=== PATIENT | male | born 1935 | race Caucasian/White ===

== ENCOUNTER 2018-03-10 07:54 | Emergency (ER) | payer MEDICARE, BC ==
[2018-03-10] MEDS ORDERED: Aspirin 81 MG Tab.Chew PO ONE (08:29)
[2018-03-10] MEDS ORDERED: Nitroglycerin 0.4 MG Tab.SL SL PRN (08:29)
[2018-03-10] MEDS ORDERED: Sodium Chloride 0.9% 10 ML Syringe FLUSH PRN (08:29)
[2018-03-10] MEDS ORDERED: Morphine 2 MG/ML Syringe IVPUSH PRN (08:29)
--- NOTE | 2018-03-10 08:41 | EDM.PDOC ---
ED HPI GENERAL MEDICAL PROBLEM - General Chief Complaint: Chest Pain Stated Complaint: PAIN IN CHEST AND SHOULDERS Time Seen by Provider: 03/10/18 08:28 Source of Information: Reports: Patient, Family, Old Records, RN Notes Reviewed History Limitations: Reports: No Limitations - History of Present Illness INITIAL COMMENTS - FREE TEXT/NARRATIVE: 83-year-old gentleman presents to the emergency department day complaint of chest pressure, states the pressure started yesterday morning lasted about 4 hours then resolved rated it 5 out of 10, he had another event of chest pressure this morning presented to the emergency department for further evaluation initially was 2 out of 10 on presentation however is chest pain-free at this time. Denies any shortness of breath diaphoresis nausea or vomiting. Describes the pressure across the center of his chest with radiation down both arms. 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 Chest Pain Score (Numeric/FACES): 2 - Related Data Allergies Allergy/AdvReac Type Severity Reaction Status Date / Time Penicillins Allergy Hives Verified 03/10/18 08:16 Home Meds: Home Meds Insulin Glarg,Human.Rec.Analog [LantUS] 20 unit SUBCUT DAILY 11/10/13 [History] Levothyroxine [Sythroid] 137 mcg PO DAILY 11/10/13 [History] Lisinopril 40 mg PO DAILY 11/10/13 [History] Pravastatin [Pravachol] 40 mg PO DAILY 11/10/13 [History] Doxazosin Mesylate [Cardura XL] 8 mg PO DAILY 05/09/14 [History] Acetaminophen [Tylenol] 650 mg PO Q6H PRN 03/10/18 [History] Calcium Carbonate/Vitamin D3 [Calcium 600-Vit D3 800 Tab] 1 each PO DAILY [History] Gluc/Tremayne-Msm#1/Vit C/Darian/Bor [Ruxoftj-Gecnf-UDG Complex Cplt] 1 each PO DAILY 03/10/18 [History] Methylsulfonylmethane [MSM] 2,000 mg PO DAILY 03/10/18 [History] Multivitamin [Multi-Vitamin Daily] 1 each PO DAILY 03/10/18 [History] [place]-3 Fatty Acids [[place]-3] 1,000 mg PO DAILY 03/10/18 [History] Potassium Chloride [Klor-Con 10] 10 meq PO DAILY 03/10/18 [History] Past Medical History HEENT History: Reports: Cataract, Hard of Hearing, Impaired Vision Cardiovascular History: Reports: High Cholesterol, Hypertension Musculoskeletal History: Reports: Osteoarthritis Endocrine/Metabolic History: Reports: Diabetes, Type II, IDDM - Infectious Disease History Infectious Disease History: Reports: Measles - Past Surgical History HEENT Surgical History: Reports: Cataract Surgery GI Surgical History: Reports: Appendectomy, Colonoscopy, Hernia, Inguinal Musculoskeletal Surgical History: Reports: Hip Replacement, Other (See Below) Social & Family History - Tobacco Use Smoking Status *Q: Never Smoker Second Hand Smoke Exposure: No - Caffeine Use Caffeine Use: Reports: Coffee - Alcohol Use Days Per Week of Alcohol Use: 0 - Recreational Drug Use Recreational Drug Use: No ED ROS GENERAL - Review of Systems Review Of Systems: See Below Constitutional: Reports: No Symptoms HEENT: Reports: No Symptoms Respiratory: Reports: No Symptoms Cardiovascular: Reports: Chest Pain GI/Abdominal: Reports: No Symptoms : Reports: No Symptoms Musculoskeletal: Reports: No Symptoms Skin: Reports: No Symptoms Neurological: Reports: No Symptoms Psychiatric: Reports: No Symptoms ED EXAM, GENERAL - Physical Exam Exam: See Below Free Text/Narrative:: General: Elderly male, not in any distress, alert and oriented x3 HEENT: head is atraumatic normocephalic, eyes pupils equal round reactive to light, sclera clear no conjunctivitis appreciated. Ears tympanic membranes clear and chua landmarks and light reflex are present bilaterally canals are clear. Nose no septal deviation, nares are clear, no blood present. Mouth mucosa is moist and pink no erythema or exudate noted in soft palate, tongue is midline uvula is midline, dentition is intact. Neck: Supple no thyromegaly no tracheal deviation. Nodes: Cervical nodes subclavicular nodes nontender no palpable lymphadenopathy noted. Lungs: clear to auscultation bilaterally with symmetrical respirations, no adventitious noise appreciated. CV: Regular rate and rhythm S1 and S2 appreciated no murmurs rubs or gallops noted. Abdomen: Soft, nontender, no palpable masses or organomegaly appreciated, no distention no guarding bowel sounds are present, . Neuro: Cranial nerves II through XII grossly intact Skin: Warm and dry, intact Extremities: No lower extremity edema appreciated, Course - Vital Signs Last Recorded V/S: Last Vital Signs Temp 98.1 F 03/10/18 08:22 Pulse 48 L 03/10/18 08:22 Resp 12 03/10/18 08:22 BP 167/95 H 03/10/18 08:22 Pulse Ox 96 03/10/18 08:22 - Orders/Labs/Meds Orders: Active Orders 24 hr Category Date Time Status Cardiac Monitoring [RC] .As Directed Care 03/10/18 08:29 Active EKG Documentation Completion [RC] ASDIRECTED Care 03/10/18 08:30 Active Peripheral IV Care [RC] . DIRECTED Care 03/10/18 08:30 Active Heparin Sodium/D5W [Heparin 25,000 Units in D5W 500 ML] Med 03/10/18 09:30 Active 25,000 units in 500 ml IV TITRATE Morphine Med 03/10/18 08:29 Active 2 mg IVPUSH Q10M PRN Nitroglycerin [Nitrostat] Med 03/10/18 08:29 Active 0.4 mg SL Q5M PRN Sodium Chloride 0.9% [Saline Flush] Med 03/10/18 08:29 Active 10 ml FLUSH ASDIRECTED PRN Peripheral IV Insertion Adult [OM.PC] Stat Oth 03/10/18 08:29 Ordered Saline Lock Insert [OM.PC] Stat Oth 03/10/18 08:29 Ordered EKG 12 Lead [EK] Stat Ther 03/10/18 08:30 Ordered Medication Orders Heparin Sodium/Dextrose (Heparin 25,000 Units In D5w 500 Ml) 25,000 units in 500 mls @ 21.984 mls/hr IV TITRATE BRIEN; Protocol Morphine Sulfate (Morphine) 2 mg IVPUSH Q10M PRN PRN Reason: Chest Pain Stop: 03/11/18 08:30 Nitroglycerin (Nitrostat) 0.4 mg SL Q5M PRN PRN Reason: Chest Pain Stop: 03/11/18 08:30 Sodium Chloride (Saline Flush) 10 ml FLUSH ASDIRECTED PRN PRN Reason: Keep Vein Open Labs: Laboratory Tests 03/10/18 03/10/18 03/10/18 Range/Units 08:35 08:35 08:55 WBC 4.6 (4.5-11.0) K/uL RBC 4.04 L (4.30-5.90) M/uL Hgb 12.8 (12.0-15.0) g/dL Hct 36.9 L (40.0-54.0) % MCV 91 (80-98) fL MCH 32 H (27-31) pg MCHC 35 (32-36) % Plt Count 115 L (150-400) K/uL Neut % (Auto) 64 (36-66) % Lymph % (Auto) 26 (24-44) % Free[place] % (Auto) 9 H (2-6) % Eos % (Auto) 1 L (2-4) % Baso % (Auto) 0 (0-1) % PT (9.5-12.0) sec INR (0.80-1.20) APTT (27.0-36.0) sec Sodium 142 (140-148) mmol/L Potassium 3.4 L (3.6-5.2) mmol/L Chloride 104 (100-108) mmol/L Carbon Dioxide 28 (21-32) mmol/L Anion Gap 13.4 (5.0-14.0) mmol/L BUN 15 (7-18) mg/dL Creatinine 1.0 (0.8-1.3) mg/dL Est Cr Clr Drug Dosing 60.36 mL/min Estimated GFR (MDRD) > 60 (>60) Glucose 205 H (74-106) mg/dL Calcium 8.2 L (8.5-10.1) mg/dL Magnesium 1.8 (1.8-2.4) mg/dL Total Bilirubin 0.7 (0.2-1.0) mg/dL AST 22 (15-37) U/L ALT 26 (12-78) U/L Alkaline Phosphatase 77 (46-116) U/L Troponin I 0.098 H* (0.000-0.056) ng/mL Total Protein 6.4 (6.4-8.2) g/dL Albumin 3.4 (3.4-5.0) g/dL Globulin 3.0 (2.3-3.5) g/dL Albumin/Globulin Ratio 1.1 L (1.2-2.2) TSH, Ultra Sensitive 0.466 (0.358-3.740) uIU/mL 03/10/18 03/10/18 Range/Units 09:03 09:04 WBC (4.5-11.0) K/uL RBC (4.30-5.90) M/uL Hgb (12.0-15.0) g/dL Hct (40.0-54.0) % MCV (80-98) fL MCH (27-31) pg MCHC (32-36) % Plt Count (150-400) K/uL Neut % (Auto) (36-66) % Lymph % (Auto) (24-44) % Freeborn % (Auto) (2-6) % Eos % (Auto) (2-4) % Baso % (Auto) (0-1) % PT 11.5 (9.5-12.0) sec INR 1.07 (0.80-1.20) APTT 25.6 L (27.0-36.0) sec Sodium (140-148) mmol/L Potassium (3.6-5.2) mmol/L Chloride (100-108) mmol/L Carbon Dioxide (21-32) mmol/L Anion Gap (5.0-14.0) mmol/L BUN (7-18) mg/dL Creatinine (0.8-1.3) mg/dL Est Cr Clr Drug Dosing mL/min Estimated GFR (MDRD) (>60) Glucose (74-106) mg/dL Calcium (8.5-10.1) mg/dL Magnesium (1.8-2.4) mg/dL Total Bilirubin (0.2-1.0) mg/dL AST (15-37) U/L ALT (12-78) U/L Alkaline Phosphatase (46-116) U/L Troponin I (0.000-0.056) ng/mL Total Protein (6.4-8.2) g/dL Albumin (3.4-5.0) g/dL Globulin (2.3-3.5) g/dL Albumin/Globulin Ratio (1.2-2.2) TSH, Ultra Sensitive (0.358-3.740) uIU/mL Meds: Medications Generic Name Dose Route Start Last Admin Trade Name Freq PRN Reason Stop Dose Admin Heparin Sodium/Dextrose 25,000 units in 500 mls @ 21.984 mls/hr 03/10/18 09: 30 Heparin 25,000 Units In D5w 500 Ml IV TITRATE BRIEN Protocol 12 UNITS/KG/HR Morphine Sulfate 2 mg 03/10/18 08:29 Morphine IVPUSH 03/11/18 08:30 Q10M PRN Chest Pain Nitroglycerin 0.4 mg 03/10/18 08:29 Nitrostat SL 03/11/18 08:30 Q5M PRN Chest Pain Sodium Chloride 10 ml 03/10/18 08:29 Saline Flush FLUSH ASDIRECTED PRN Keep Vein Open Discontinued Medications Generic Name Dose Route Start Last Admin Trade Name Freq PRN Reason Stop Dose Admin Aspirin 324 mg 03/10/18 08:29 03/10/18 08:37 Aspirin PO 03/10/18 08:30 324 mg ONETIME ONE Administration Clopidogrel Bisulfate 300 mg 03/10/18 09:04 03/10/18 09:31 Plavix PO 03/10/18 09:05 300 mg ONETIME ONE Administration Heparin Sodium (Porcine) 4,000 units 03/10/18 09:04 03/10/18 09:33 Heparin Sodium IVPUSH 03/10/18 09:05 4,000 units ONETIME ONE Administration Departure - Departure Time of Disposition: 09:38 Disposition: DC/Tfer to Acute Hospital 02 Reason for Transfer *Q: Primary PCI Indicated Condition: Fair Clinical Impression: Non-ST elevation (NSTEMI) myocardial infarction Referrals: Jose Bolivar MD [Primary Care Provider] - Forms: ED Department Discharge - My Orders Last 24 Hours: My Active Orders 03/10/18 08:29 Cardiac Monitoring [RC] .As Directed Morphine 2 mg IVPUSH Q10M PRN Nitroglycerin [Nitrostat] 0.4 mg SL Q5M PRN Sodium Chloride 0.9% [Saline Flush] 10 ml FLUSH ASDIRECTED PRN Peripheral IV Insertion Adult [OM.PC] Stat Saline Lock Insert [OM.PC] Stat 03/10/18 08:30 EKG Documentation Completion [RC] ASDIRECTED Peripheral IV Care [RC] . DIRECTED EKG 12 Lead [EK] Stat 03/10/18 09:30 Heparin Sodium/D5W [Heparin 25,000 Units in D5W 500 ML] 25,000 units in 500 ml IV TITRATE - Assessment/Plan Last 24 Hours: My Active Orders 03/10/18 08:29 Cardiac Monitoring [RC] .As Directed Morphine 2 mg IVPUSH Q10M PRN Nitroglycerin [Nitrostat] 0.4 mg SL Q5M PRN Sodium Chloride 0.9% [Saline Flush] 10 ml FLUSH ASDIRECTED PRN Peripheral IV Insertion Adult [OM.PC] Stat Saline Lock Insert [OM.PC] Stat 03/10/18 08:30 EKG Documentation Completion [RC] ASDIRECTED Peripheral IV Care [RC] . DIRECTED EKG 12 Lead [EK] Stat 03/10/18 09:30 Heparin Sodium/D5W [Heparin 25,000 Units in D5W 500 ML] 25,000 units in 500 ml IV TITRATE Plan: Assessment Acuity = acute Site and laterality = non-ST elevation myocardial infarction with new onset atrial fibrillation complicated patient with known history of diabetes mellitus type 2, hypertension and dyslipidemia Etiology = suspicious for underlying coronary artery disease Manifestations = none Location of injury = Home Lab values = CBC unremarkable potassium low at 3.4 consistent with hypokalemia troponin mildly elevated 0.098, EKG demonstrates an atrial fibrillation which is new, chest x-ray demonstrates cardiomegaly Plan Called discussed case with hospitalist organisation and methods analyst Dr. Markham kindly accepted the patient. Patient has been given aspirin, Plavix 300 mg and heparin bolus with drip initiated in route, he will be transported via EMS ground to [facility], he is remained pain-free while in the emergency department This note was dictated using [employer] voice recognition software please call with any questions on syntax or jeramy.
[2018-03-10] MEDS ORDERED: Heparin Sodium 5,000 Units/ML Vial IVPUSH ONE (09:04)
[2018-03-10] MEDS ORDERED: Clopidogrel 75 MG Tab PO ONE (09:04)
--- NOTE | 2018-03-10 09:21 | CR ---
Chest 2V HISTORY: Chest pain COMPARISON: None FINDINGS: Cardiac size is mildly enlarged. There is mild hyperinflation. No acute congestive change o r focal infiltrates. No effusions seen. Impression: Cardiomegaly. No acute infiltrate.
[2018-03-10] MEDS ORDERED: Heparin Sodium/D5W 25,000 UNITS/500 ML BAG IV SCH (09:30)
[2018-03-10 09:45] VITALS: BP 175/89
== END 2018-03-10 10:37 ==
LOC: JP.ED 07:54
DX: I21.4 Non-ST elevation (NSTEMI) myocardial infarction (principal); E78.00 Pure hypercholesterolemia, unspecified; I10 Essential (primary) hypertension; E11.9 Type 2 diabetes mellitus without complications; Z90.49 Acquired absence of other specified parts of digestive tract; I48.91 Unspecified atrial fibrillation; E78.5 Hyperlipidemia, unspecified; Z88.0 Allergy status to penicillin; Z79.899 Other long term (current) drug therapy; Z79.4 Long term (current) use of insulin
CPT/HCPCS: 36415; 71046; 80053; 83735; 84443; 84484; 85025; 85610; 85730; 93005; 96374; 99285; A9270; J1644; 93010

== ENCOUNTER 2019-05-02 08:35 | Inpatient (IN) | payer MEDICARE, BC ==
--- NOTE | 2019-05-02 08:59 | EDM.PDOC ---
ED HPI GENERAL MEDICAL PROBLEM - General Chief Complaint: General Stated Complaint: ill back stools Time Seen by Provider: 05/02/19 08:45 Source of Information: Reports: Patient, EMS, Old Records History Limitations: Reports: No Limitations - History of Present Illness INITIAL COMMENTS - FREE TEXT/NARRATIVE: 84 yo male sent from his assisted living facility for weakness and passage of black stools. No apparent hx of this. No vomiting. No abdominal pain. No hx of this or peptic ulcers. Vitals stable per EMS. Daughter here at bed side. Is on famotidine 20 mg daily for gastroprotection and is on warfarin. Onset: Today Onset Date: 05/02/19 Duration: Hour(s):, Constant Location: Reports: Generalized Quality: Reports: Other (no reported pain) Severity: Mild Improves with: Reports: None Worsens with: Reports: Other (unknown) Context: Reports: Other (see HPI) Associated Symptoms: Reports: Weakness. Denies: Diaphoresis, Fever/Chills, Nausea/Vomiting Treatments [employer]: Reports: Other (see below) (none) - Related Data Allergies Allergy/AdvReac Type Severity Reaction Status Date / Time Penicillins Allergy Hives Verified 03/10/18 08:16 Home Meds: Home Meds Insulin Glarg,Human.Rec.Analog [LantUS] 20 unit SUBCUT DAILY 11/10/13 [History] Levothyroxine [Sythroid] 125 mcg PO DAILY 11/10/13 [History] Lisinopril 10 mg PO DAILY 11/10/13 [History] Pravastatin [Pravachol] 40 mg PO DAILY 11/10/13 [History] Doxazosin Mesylate [Cardura XL] 8 mg PO DAILY 05/09/14 [History] Acetaminophen [Tylenol] 650 mg PO Q6H PRN 03/10/18 [History] Calcium Carbonate/Vitamin D3 [Calcium 600-Vit D3 800 Tab] 1 each PO DAILY [History] Gluc/Tremayne-Msm#1/Vit C/Darian/Bor [Aoppryc-Wzfil-XLR Complex Cplt] 1 each PO DAILY 03/10/18 [History] Methylsulfonylmethane [MSM] 2,000 mg PO DAILY 03/10/18 [History] Multivitamin [Multi-Vitamin Daily] 1 each PO DAILY 03/10/18 [History] Potassium Chloride [Klor-Con 10] 10 meq PO DAILY 03/10/18 [History] Aspirin [Halfprin] 81 mg PO DAILY 05/02/19 [History] Citalopram [Citalopram HBr] 10 mg PO DAILY 05/02/19 [History] Donepezil [Aricept] 10 mg PO BEDTIME 05/02/19 [History] Famotidine 20 mg PO DAILY 05/02/19 [History] Magnesium Chloride [Mag-64] 535 mg PO DAILY 05/02/19 [History] Warfarin [Coumadin] 5 mg PO ASDIRECTED 05/02/19 [History] amLODIPine Besylate [Norvasc] 2.5 mg PO DAILY 05/02/19 [History] Past Medical History HEENT History: Reports: Cataract, Hard of Hearing, Impaired Vision Cardiovascular History: Reports: High Cholesterol, Hypertension Musculoskeletal History: Reports: Osteoarthritis Endocrine/Metabolic History: Reports: Diabetes, Type II, IDDM - Infectious Disease History Infectious Disease History: Reports: Measles - Past Surgical History HEENT Surgical History: Reports: Cataract Surgery GI Surgical History: Reports: Appendectomy, Colonoscopy, Hernia, Inguinal Musculoskeletal Surgical History: Reports: Hip Replacement, Other (See Below) Social & Family History - Caffeine Use Caffeine Use: Reports: Coffee ED ROS GENERAL - Review of Systems Review Of Systems: See Below Constitutional: Reports: Weakness HEENT: Reports: No Symptoms Respiratory: Reports: No Symptoms Cardiovascular: Reports: No Symptoms Endocrine: Reports: No Symptoms GI/Abdominal: Reports: Black Stool, Melena. Denies: Abdominal Pain, Bloody Stool, Constipation, Diarrhea, Vomiting : Reports: No Symptoms Musculoskeletal: Reports: No Symptoms Skin: Reports: No Symptoms Neurological: Reports: No Symptoms ED EXAM, GENERAL - Physical Exam Exam: See Below Exam Limited By: No Limitations General Appearance: Alert, WD/WN, No Apparent Distress Eye Exam: Bilateral Eye: Normal Inspection Ears: Normal External Exam, Normal Canal, Hearing Grossly Normal Ear Exam: Bilateral Ear: Auricle Normal, Canal Normal Nose: Normal Inspection, No Blood Throat/Mouth: Normal Inspection, Normal Lips, Normal Oropharynx, Normal Voice, No Airway Compromise Head: Atraumatic, Normocephalic Neck: Normal Inspection Respiratory/Chest: No Respiratory Distress, Lungs Clear, Normal Breath Sounds, No Accessory Muscle Use Cardiovascular: Regular Rate, Rhythm, No Edema GI/Abdominal: Normal Bowel Sounds, Soft, Non-Tender, No Distention. No: Distended, Guarding, Rigid, Rebound, Tender, Abnormal Bowel Sounds Neurological: Alert, CN II-XII Intact, Normal Cognition, No Motor/Sensory Deficits Psychiatric: Normal Affect, Normal Mood Skin Exam: Warm, Dry, Intact, Normal Color, No Rash Course - Vital Signs Text/Narrative:: Dr. Mcintosh called @ 0945h Last Recorded V/S: Last Vital Signs Temp 35.7 C 05/02/19 08:45 Pulse 63 05/02/19 08:45 Resp 14 05/02/19 08:45 BP 127/67 05/02/19 08:45 Pulse Ox 96 05/02/19 08:45 Orthostatic Blood Pressure [ 100/58 Standing] Orthostatic Blood Pressure [ 108/63 Sitting] Orthostatic Blood Pressure [ 123/72 Supine] - Orders/Labs/Meds Orders: Active Orders 24 hr Category Date Time Status Orthostatic Vital Signs [RC] ASDIRECTED Care 05/02/19 08:54 Active H. PYLORI STOOL AG, EIA Routine Lab 05/02/19 09:47 Received UA W/MICROSCOPIC [URIN] Stat Lab 05/02/19 08:55 Ordered Lactated Ringers [Ringers, Lactated] 1,000 ml Med 05/02/19 09:45 Active IV ASDIRECTED Pantoprazole [ProTONIX IV] Med 05/02/19 09:45 Active 80 mg IVPUSH .BOLUS Medication Orders Lactated Ringer's (Ringers, Lactated) 1,000 mls @ 500 mls/hr IV ASDIRECTED BRIEN Last Admin: 05/02/19 09:53 Dose: 500 mls/hr Pantoprazole Sodium (Protonix Iv) 80 mg IVPUSH .BOLUS BRIEN Last Admin: 05/02/19 09:54 Dose: 80 mg Labs: Laboratory Tests 05/02/19 05/02/19 05/02/19 Range/Units 09:15 09:15 09:33 WBC 11.8 H (4.5-11.0) K/uL RBC 3.89 L (4.30-5.90) M/uL Hgb 11.8 L (12.0-15.0) g/dL Hct 35.1 L (40.0-54.0) % MCV 90 (80-98) fL MCH 30 (27-31) pg MCHC 34 (32-36) % Plt Count 166 (150-400) K/uL PT 22.7 H (9.5-12.0) sec INR 2.16 H (0.80-1.20) Sodium 137 L (140-148) mmol/L Potassium 4.0 (3.6-5.2) mmol/L Chloride 104 (100-108) mmol/L Carbon Dioxide 24 (21-32) mmol/L Anion Gap 13.0 (5.0-14.0) mmol/L BUN 33 H D (7-18) mg/dL Creatinine 1.2 (0.8-1.3) mg/dL Est Cr Clr Drug Dosing 49.40 mL/min Estimated GFR (MDRD) 58 L (>60) Glucose 131 H (74-106) mg/dL Calcium 8.7 (8.5-10.1) mg/dL Meds: Medications Generic Name Dose Route Start Last Admin Trade Name Freq PRN Reason Stop Dose Admin Lactated Ringer's 1,000 mls @ 500 mls/hr 05/02/19 09:45 05/02/19 09:53 Ringers, Lactated IV 500 mls/hr ASDIRECTED BRIEN Administration Pantoprazole Sodium 80 mg 05/02/19 09:45 05/02/19 09:54 Protonix Iv IVPUSH 80 mg .BOLUS BRIEN Administration Departure - Departure Time of Disposition: 10:15 Disposition: Admitted As Inpatient 66 Condition: Fair Clinical Impression: Melena, Orthostatic hypotension - Discharge Information Referrals: Jose Bolivar MD [Primary Care Provider] - Forms: ED Department Discharge - My Orders Last 24 Hours: My Active Orders 05/02/19 08:54 Orthostatic Vital Signs [RC] ASDIRECTED 05/02/19 08:55 UA W/MICROSCOPIC [URIN] Stat 05/02/19 09:45 Lactated Ringers [Ringers, Lactated] 1,000 ml IV ASDIRECTED Pantoprazole [ProTONIX IV] 80 mg IVPUSH .BOLUS 05/02/19 09:47 H. PYLORI STOOL AG, EIA Routine - Assessment/Plan Last 24 Hours: My Active Orders 05/02/19 08:54 Orthostatic Vital Signs [RC] ASDIRECTED 05/02/19 08:55 UA W/MICROSCOPIC [URIN] Stat 05/02/19 09:45 Lactated Ringers [Ringers, Lactated] 1,000 ml IV ASDIRECTED Pantoprazole [ProTONIX IV] 80 mg IVPUSH .BOLUS 05/02/19 09:47 H. PYLORI STOOL AG, EIA Routine
[2019-05-02] MEDS ORDERED: Lactated Ringers 1,000 ML IV SCH (09:45)
[2019-05-02] MEDS ORDERED: Pantoprazole 40 MG Vial IVPUSH SCH (09:45)
--- NOTE | 2019-05-02 10:51 | PCM.HP ---
H&P History of Present Illness - General Date of Service: 05/02/19 Admit Problem/Dx: Admission Diagnosis/Problem Admission Diagnosis/Problem Bleeding Source of Information: Family, Old Records, Provider, RN Notes Reviewed History Limitations: Reports: Altered Mental Status (Dementia) - History of Present Illness Initial Comments - Free Text/Narative: Mr. Palmer is an 84-year-old gentleman who was admitted through the emergency department with an apparent upper GI bleed. He had been well until this morning when staff at the assisted living facility noted a melenic-appearing stool. He was noted to be weak and reported that he did not feel well. On evaluation in the emergency department hemoglobin is down slightly from his baseline. He was found to be orthostatic with heme positive stool. He is on long-term oral anticoagulation for atrial fibrillation. INR was within therapeutic range. He is unable to provide meaningful history concerning symptoms or review of systems because of underlying dementia. - Related Data Allergies/Adverse Reactions: Allergies Allergy/AdvReac Type Severity Reaction Status Date / Time Penicillins Allergy Hives Verified 03/10/18 08:16 Home Medications: Home Meds Insulin Glarg,Human.Rec.Analog [LantUS] 20 unit SUBCUT DAILY 11/10/13 [History] Levothyroxine [Sythroid] 125 mcg PO DAILY 11/10/13 [History] Lisinopril 10 mg PO DAILY 11/10/13 [History] Pravastatin [Pravachol] 40 mg PO DAILY 11/10/13 [History] Doxazosin Mesylate [Cardura XL] 8 mg PO DAILY 05/09/14 [History] Acetaminophen [Tylenol] 650 mg PO Q6H PRN 03/10/18 [History] Calcium Carbonate/Vitamin D3 [Calcium 600-Vit D3 800 Tab] 1 each PO DAILY [History] Gluc/[place]-Msm#1/Vit C/Darian/Bor [Msqcqjo-Bwwfv-TEE Complex Cplt] 1 each PO DAILY 03/10/18 [History] Methylsulfonylmethane [MSM] 2,000 mg PO DAILY 03/10/18 [History] Multivitamin [Multi-Vitamin Daily] 1 each PO DAILY 03/10/18 [History] Potassium Chloride [Klor-Con 10] 10 meq PO DAILY 03/10/18 [History] Aspirin [Halfprin] 81 mg PO DAILY 05/02/19 [History] Citalopram [Citalopram HBr] 10 mg PO DAILY 05/02/19 [History] Donepezil [Aricept] 10 mg PO BEDTIME 05/02/19 [History] Famotidine 20 mg PO DAILY 05/02/19 [History] Magnesium Chloride [Mag-64] 535 mg PO DAILY 05/02/19 [History] Warfarin [Coumadin] 5 mg PO ASDIRECTED 05/02/19 [History] amLODIPine Besylate [Norvasc] 2.5 mg PO DAILY 05/02/19 [History] Past Medical History HEENT History: Reports: Cataract, Hard of Hearing, Impaired Vision Cardiovascular History: Reports: High Cholesterol, Hypertension Musculoskeletal History: Reports: Osteoarthritis Endocrine/Metabolic History: Reports: Diabetes, Type II, IDDM Other Oncologic History: skin CA - Infectious Disease History Infectious Disease History: Reports: Measles - Past Surgical History HEENT Surgical History: Reports: Cataract Surgery GI Surgical History: Reports: Appendectomy, Colonoscopy, Hernia, Inguinal Musculoskeletal Surgical History: Reports: Hip Replacement, Other (See Below) Social & Family History - Tobacco Use Smoking Status *Q: Never Smoker - Caffeine Use Caffeine Use: Reports: Coffee - Recreational Drug Use Recreational Drug Use: No H&P Review of Systems - Review of Systems: Review Of Systems: Unable To Obtain General: Reports: ROS unobtainable (Dementia) Exam - Exam Exam: See Below - Vital Signs Vital Signs: Last Vital Signs Temp 96.2 F 05/02/19 08:45 Pulse 63 05/02/19 08:45 Resp 14 05/02/19 08:45 BP 127/67 05/02/19 08:45 Pulse Ox 96 05/02/19 08:45 Orthostatic Blood Pressure [ 100/58 Standing] Orthostatic Blood Pressure [ 108/63 Sitting] Orthostatic Blood Pressure [ 123/72 Supine] Weight: 205 lb - Exam Quality Assessment: DVT Prophylaxis General: Alert, Cooperative, Mild Distress. No: Oriented HEENT: Conjunctiva Clear, Normal Nasal Septum, Posterior Pharynx Clear, Pupils Equal. No: Hearing Intact, Mucosa Moist & [place]ck: Supple, Trachea Midline, +2 Carotid Pulse wo Bruit Lungs: Clear to Auscultation, Normal Respiratory Effort Cardiovascular: Regular Rate, Normal S1, Normal S2, Irregular Rhythm. No: Systolic Murmur, Diastolic Murmur GI/Abdominal Exam: Soft, Non-Tender, No Organomegaly, No Distention Back Exam: Normal Inspection, Full Range of Motion Extremities: Non-Tender, No Pedal Edema Skin: Warm, Dry, Intact Neurological: Cranial Nerves Intact, Strength Equal Bilateral, Normal Speech, Normal Tone, Sensation Intact. No: Focal Deficit Neuro Extensive - Mental Status: Alert, Normal Mood/Affect, Disorientation to Time, Memory Loss-Remote Events, Memory Loss-Recent Events. No: Oriented x3, Disorientation to Person, Disorientation to Place - Patient Data Lab Results Last 24 hrs: Laboratory Results - last 24 hr 05/02/19 05/02/19 05/02/19 Range/Units 09:15 09:15 09:33 WBC 11.8 H (4.5-11.0) K/uL RBC 3.89 L (4.30-5.90) M/uL Hgb 11.8 L (12.0-15.0) g/dL Hct 35.1 L (40.0-54.0) % MCV 90 (80-98) fL MCH 30 (27-31) pg MCHC 34 (32-36) % Plt Count 166 (150-400) K/uL PT 22.7 H (9.5-12.0) sec INR 2.16 H (0.80-1.20) Sodium 137 L (140-148) mmol/L Potassium 4.0 (3.6-5.2) mmol/L Chloride 104 (100-108) mmol/L Carbon Dioxide 24 (21-32) mmol/L Anion Gap 13.0 (5.0-14.0) mmol/L BUN 33 H D (7-18) mg/dL Creatinine 1.2 (0.8-1.3) mg/dL Est Cr Clr Drug Dosing 49.40 mL/min Estimated GFR (MDRD) 58 L (>60) Glucose 131 H (74-106) mg/dL Calcium 8.7 (8.5-10.1) mg/dL Result Diagrams: 05/02/19 09:15 05/02/19 09:15 Babar Results Last 24 hrs: Microbiology 05/02/19 08:51 Stool Occult Blood (BABAR) - Final Stool / Feces - Stool, Formed *Q Meaningful Use (ADM) - VTE *Q VTE Pharmacological Contraindications *Q: Active Hemorrhage - VTE Risk Assess *Q Each Risk Factor Represents 1 Point: Obesity ( BMI > 25 kg/m2) Total Score 1 Point Risk Factors: 1 Each Risk Factor Represents 2 Points: None Total Score 2 Point Risk Factors: 0 Each Risk Factor Represents 3 Points: Age 75 Years or Greater Total Score 3 Point Risk Factors: 3 Each Risk Factor Represents 5 Points: None Total Score 5 Point Risk Factors: 0 Venous Thromboembolism Risk Factor Score *Q: 4 Problem List Initiated/Reviewed/Updated: Yes Orders Last 24hrs: Active Orders 24 hr Category Date Time Status Patient Status Manage Transfer [TRANSFER] Routine ADT 05/02/19 10:24 Active Orthostatic Vital Signs [RC] ASDIRECTED Care 05/02/19 08:54 Active H. PYLORI STOOL AG, EIA Routine Lab 05/02/19 09:47 Received UA W/MICROSCOPIC [URIN] Stat Lab 05/02/19 08:55 Ordered Lactated Ringers [Ringers, Lactated] 1,000 ml Med 05/02/19 09:45 Active IV ASDIRECTED Pantoprazole [ProTONIX IV] Med 05/02/19 09:45 Active 80 mg IVPUSH .BOLUS Resuscitation Status Routine Resus Stat 05/02/19 10:29 Ordered Medication Orders Lactated Ringer's (Ringers, Lactated) 1,000 mls @ 500 mls/hr IV ASDIRECTED [facility] Last Admin: 05/02/19 09:53 Dose: 500 mls/hr Pantoprazole Sodium (Protonix Iv) 80 mg IVPUSH .BOLUS [facility] Last Admin: 05/02/19 09:54 Dose: 80 mg Assessment/Plan Comment:: ASSESSMENT AND PLAN GI BLEED-melenic stool with weakness earlier this morning. On evaluation in the emergency department hemoglobin is down from baseline, orthostatic drop in blood pressure, and heme-positive stool. -Serial hemoglobin levels -Hold warfarin -Nothing by mouth -IV fluids for hydration -Type and cross to hold 2 units of red blood cells -Continuous IV infusion of Protonix -Vitamin K 5 mg IV now -1 unit of fresh frozen plasma -Consult Dr. Rocha for EGD in a.m. ACUTE BLOOD LOSS ANEMIA-hemoglobin down slightly from baseline, expect further drop with hydration -Management as above ATRIAL FIBRILLATION-on long-term oral anticoagulation with warfarin -Hold warfarin -Vitamin K and fresh frozen plasma as above TYPE 2 DIABETES MELLITUS -Continue usual dose of long acting insulin -4 times a day glucometers -Low-dose sliding scale insulin DEMENTIA -Continue outpatient medical regimen -Melatonin 9 mg by mouth daily at bedtime MAINTENANCE ISSUES -DVT prophylaxis; scuds, hold on anticoagulation because of active bleeding -GI prophylaxis; Protonix as above -Herrera catheter; not indicated -Nutrition; nothing by mouth -Nicotine dependence; not required CODE STATUS-FULL CODE ADMISSION STATUS-patient will be admitted to inpatient status, expect at least a 2 night hospital stay for evaluation and management of problems as outlined above. At the time of this admission I do not reasonably expected evaluation and management of this problem will require more than a 96 hour hospital stay. DISPOSITION-anticipate discharge to home after the hospital stay. PRIMARY CARE PROVIDER-Dr. Bolivar
[2019-05-02] MEDS ORDERED: Sodium Chloride 0.9% 10 ML Syringe FLUSH PRN (11:04)
[2019-05-02] MEDS ORDERED: Glucose Gel 15 GM in 37.5 GM Tube PO PRN (11:04)
[2019-05-02] MEDS ORDERED: Ondansetron 4 MG/2 ML SDV IV PRN (11:04)
[2019-05-02] MEDS ORDERED: Acetaminophen 325 MG Tab PO PRN (11:04)
[2019-05-02] MEDS ORDERED: 50% Dextrose in Water 50 ML Syringe IV PRN (11:04)
[2019-05-02] MEDS ORDERED: Phytonadione 5 MG in Sodium Chloride 0.9% 50 ML IV ONE ×2 (11:04→12:00)
[2019-05-02] MEDS ORDERED: Sodium Chloride 0.9% 100 ML with Pantoprazole 80 MG IV SCH ×2 (11:04)
[2019-05-02] MEDS: Insulin Lispro 100 Unit/ML 3 ML KwikPen SUBCUT SCH ×3 (11:13→20:48)
[2019-05-02] MEDS: Lactated Ringers 1,000 ML IV SCH ×2 (11:26→19:07)
[2019-05-02] MEDS: Sodium Chloride 0.9% 100 ML with Pantoprazole 80 MG IV SCH ×6 (12:01→22:12)
[2019-05-02] MEDS: Melatonin 3 MG Tab PO SCH (20:48)
[2019-05-02] MEDS: Pravastatin 20 MG Tab PO SCH (20:48)
[2019-05-02] MEDS: Donepezil 10 MG Tab PO SCH (20:48)
[2019-05-02] MEDS ORDERED: DONEPEZIL 10 MG PO SCH (21:00)
[2019-05-03] MEDS: Lactated Ringers 1,000 ML IV SCH ×2 (02:35→09:44)
[2019-05-03] MEDS: Sodium Chloride 0.9% 100 ML with Pantoprazole 80 MG IV SCH ×4 (05:09→14:54)
[2019-05-03] MEDS ORDERED: Propofol 200 MG/20 ML SDV ONE (07:14)
[2019-05-03] MEDS: Insulin Lispro 100 Unit/ML 3 ML KwikPen SUBCUT SCH ×4 (07:15→20:37)
[2019-05-03] MEDS: Citalopram 10 MG Tab PO SCH (08:46)
[2019-05-03] MEDS: Levothyroxine 100 MCG, Levothyroxine 25 MCG PO SCH ×2 (08:46)
[2019-05-03] MEDS: Potassium Chloride 10 MEQ Cap.ER PO SCH (08:47)
[2019-05-03] MEDS: Aspirin 81 MG Tab.EC PO SCH (08:47)
[2019-05-03] MEDS: Doxazosin 4 MG Tab PO SCH (08:47)
[2019-05-03] MEDS: Insulin Glargine,Human Rec. Analog 100 Units/ML 3 ML Pen SUBCUT SCH (08:52)
[2019-05-03] MEDS ORDERED: MAGNESIUM CHLORIDE PO SCH (09:00)
[2019-05-03] MEDS ORDERED: Magnesium Oxide 400 MG Tab PO SCH (09:00)
[2019-05-03] MEDS ORDERED: DOXAZOSIN MESYLATE 8 MG PO SCH (09:00)
[2019-05-03] MEDS ORDERED: Levothyroxine 100 MCG Tab PO SCH (09:00)
[2019-05-03] MEDS ORDERED: Non-Formulary Medication 1 Each (Potassium Chloride [Klor-Con 10] 10 MEQ) PO SCH (09:00)
[2019-05-03] MEDS ORDERED: INSULIN GLARG HUMAN REC ANALOG 20 UNIT SUBCUT SCH (09:00)
[2019-05-03] MEDS ORDERED: Citalopram 20 MG Tab PO SCH (09:00)
[2019-05-03] MEDS ORDERED: Non-Formulary Medication 1 Each (Pravastatin [Pravachol] 40 MG) PO SCH (09:00)
--- NOTE | 2019-05-03 09:55 | PCM.PN ---
- General Info Date of Service: 05/03/19 Subjective Update: Mr. Palmer is had a 2 g drop in hemoglobin over the last 24 hours since admission. EGD was performed this morning by Dr. Rocha and shows diffuse esophagitis with erosions is a likely source of recent upper GI blood loss. He has remained hemodynamically stable and has been afebrile. He is unable to provide meaningful history concerning recent symptoms or review of systems because of his underlying dementia. - Patient Data Vitals - Most Recent: Last Vital Signs Temp 98.2 F 05/03/19 07:50 Pulse 92 05/03/19 08:00 Resp 18 05/03/19 07:50 BP 121/65 05/03/19 08:47 Pulse Ox 92 L 05/03/19 07:50 Orthostatic Blood Pressure [ 100/58 Standing] Orthostatic Blood Pressure [ 108/63 Sitting] Orthostatic Blood Pressure [ 123/72 Supine] Weight - Most Recent: 208 lb I&O - Last 24 Hours: Intake & Output 05/02/19 05/03/19 05/03/19 22:59 06:59 14:59 Intake Total 835 1410 Output Total 2600 350 Balance -1765 1060 Lab Results Last 24 Hours: Laboratory Results - last 24 hr 05/02/19 05/02/19 05/02/19 Range/Units 11:04 11:15 17:11 WBC (4.5-11.0) K/uL RBC (4.30-5.90) M/uL Hgb 11.2 L 9.9 L (12.0-15.0) g/dL Hct (40.0-54.0) % MCV (80-98) fL MCH (27-31) pg MCHC (32-36) % Plt Count (150-400) K/uL Neut % (Auto) (36-66) % Lymph % (Auto) (24-44) % [place] % (Auto) (2-6) % Eos % (Auto) (2-4) % Baso % (Auto) (0-1) % PT (9.5-12.0) sec INR (0.80-1.20) Sodium (140-148) mmol/L Potassium (3.6-5.2) mmol/L Chloride (100-108) mmol/L Carbon Dioxide (21-32) mmol/L Anion Gap (5.0-14.0) mmol/L BUN (7-18) mg/dL Creatinine (0.8-1.3) mg/dL Est Cr Clr Drug Dosing mL/min Estimated GFR (MDRD) (>60) Glucose (74-106) mg/dL Calcium (8.5-10.1) mg/dL Magnesium (1.8-2.4) mg/dL Blood Type A POSITIVE Gel Antibody Screen Negative Crossmatch See Detail 05/02/19 05/03/19 05/03/19 Range/Units 23:00 04:30 04:30 WBC 6.5 (4.5-11.0) K/uL RBC 3.00 L (4.30-5.90) M/uL Hgb 9.5 L 9.3 L (12.0-15.0) g/dL Hct 27.6 L (40.0-54.0) % MCV 92 (80-98) fL MCH 31 (27-31) pg MCHC 34 (32-36) % Plt Count 147 L (150-400) K/uL Neut % (Auto) 72 H (36-66) % Lymph % (Auto) 20 L (24-44) % [place] % (Auto) 7 H (2-6) % Eos % (Auto) 1 L (2-4) % Baso % (Auto) 0 (0-1) % PT 13.6 H (9.5-12.0) sec INR 1.25 H (0.80-1.20) Sodium (140-148) mmol/L Potassium (3.6-5.2) mmol/L Chloride (100-108) mmol/L Carbon Dioxide (21-32) mmol/L Anion Gap (5.0-14.0) mmol/L BUN (7-18) mg/dL Creatinine (0.8-1.3) mg/dL Est Cr Clr Drug Dosing mL/min Estimated GFR (MDRD) (>60) Glucose (74-106) mg/dL Calcium (8.5-10.1) mg/dL Magnesium (1.8-2.4) mg/dL Blood Type Gel Antibody Screen Crossmatch 05/03/19 Range/Units 04:30 WBC (4.5-11.0) K/uL RBC (4.30-5.90) M/uL Hgb (12.0-15.0) g/dL Hct (40.0-54.0) % MCV (80-98) fL MCH (27-31) pg MCHC (32-36) % Plt Count (150-400) K/uL Neut % (Auto) (36-66) % Lymph % (Auto) (24-44) % [place] % (Auto) (2-6) % Eos % (Auto) (2-4) % Baso % (Auto) (0-1) % PT (9.5-12.0) sec INR (0.80-1.20) Sodium 142 (140-148) mmol/L Potassium 3.8 (3.6-5.2) mmol/L Chloride 108 (100-108) mmol/L Carbon Dioxide 25 (21-32) mmol/L Anion Gap 9.1 (5.0-14.0) mmol/L BUN 36 H (7-18) mg/dL Creatinine 0.9 (0.8-1.3) mg/dL Est Cr Clr Drug Dosing 65.86 mL/min Estimated GFR (MDRD) > 60 (>60) Glucose 124 H (74-106) mg/dL Calcium 8.2 L (8.5-10.1) mg/dL Magnesium 1.6 L (1.8-2.4) mg/dL Blood Type Gel Antibody Screen Crossmatch Babar Results Last 24 Hours: Microbiology 05/02/19 08:51 Stool Occult Blood (BABAR) - Final Stool / Feces - Stool, Formed Med Orders - Current: Current Medications Acetaminophen (Tylenol) 650 mg PO Q4H PRN PRN Reason: Pain (Mild 1-3)/fever Aspirin (Halfprin) 81 mg PO DAILY COUNTS INCLUDE 234 BEDS AT THE [facility] Last Admin: 05/03/19 08:47 Dose: 81 mg Citalopram Hydrobromide (Celexa) 10 mg PO DAILY COUNTS INCLUDE 234 BEDS AT THE [facility] Last Admin: 05/03/19 08:46 Dose: 10 mg Dextrose (Glutose 15) 15 gm PO ONETIME PRN PRN Reason: Hypoglycemia Dextrose/Water (Dextrose 50% In Water) 50 ml IV ONETIME PRN PRN Reason: Hypoglycemia Donepezil HCl (Aricept) 10 mg PO BEDTIME COUNTS INCLUDE 234 BEDS AT THE [facility] Last Admin: 05/02/19 20:48 Dose: 10 mg Doxazosin Mesylate (Cardura) 8 mg PO DAILY COUNTS INCLUDE 234 BEDS AT THE [facility] Last Admin: 05/03/19 08:47 Dose: 8 mg Lactated Ringer's (Ringers, Lactated) 1,000 mls @ 125 mls/hr IV ASDIRECTED COUNTS INCLUDE 234 BEDS AT THE [facility] Last Admin: 05/03/19 09:44 Dose: 125 mls/hr Pantoprazole Sodium 80 mg/ (Sodium Chloride) 100 mls @ 10 mls/hr IV .Q10H COUNTS INCLUDE 234 BEDS AT THE [facility] Last Admin: 05/03/19 05:09 Dose: 10 mls/hr Magnesium Sulfate 2 gm/ Premix 50 mls @ 25 mls/hr IV ONETIME ONE Stop: 05/03/19 11:59 Insulin Glargine (Lantus Solostar) 20 units SUBCUT DAILY COUNTS INCLUDE 234 BEDS AT THE [facility] Last Admin: 05/03/19 08:52 Dose: 20 units Insulin Human Lispro (Humalog) 0 unit SUBCUT QIDACANDBED COUNTS INCLUDE 234 BEDS AT THE [facility]; Protocol Last Admin: 05/03/19 07:15 Dose: Not Given Levothyroxine Sodium 100 mcg/ (Levothyroxine Sodium 25 mcg) 125 mcg PO ACBREAKFAST COUNTS INCLUDE 234 BEDS AT THE [facility] Last Admin: 05/03/19 08:46 Dose: 125 mcg Magnesium Oxide (Magnesium Oxide) 400 mg PO BID COUNTS INCLUDE 234 BEDS AT THE [facility] Melatonin (Melatonin) 9 mg PO BEDTIME COUNTS INCLUDE 234 BEDS AT THE [facility] Last Admin: 05/02/19 20:48 Dose: 9 mg Ondansetron HCl (Zofran) 4 mg IV Q4H PRN PRN Reason: Nausea/Vomiting Potassium Chloride (Potassium Chloride) 10 meq PO DAILY COUNTS INCLUDE 234 BEDS AT THE [facility] Last Admin: 05/03/19 08:47 Dose: 10 meq Pravastatin Sodium (Pravachol) 40 mg PO BEDTIME COUNTS INCLUDE 234 BEDS AT THE [facility] Last Admin: 05/02/19 20:48 Dose: 40 mg Sodium Chloride (Saline Flush) 10 ml FLUSH ASDIRECTED PRN PRN Reason: Keep Vein Open Sucralfate (Carafate) 0.5 gm PO QIDACANDBED COUNTS INCLUDE 234 BEDS AT THE [facility] Discontinued Medications Lactated Ringer's (Ringers, Lactated) 1,000 mls @ 500 mls/hr IV ASDIRECTED COUNTS INCLUDE 234 BEDS AT THE [facility] Last Admin: 05/02/19 09:53 Dose: 500 mls/hr Phytonadione 5 mg/ Sodium (Chloride) 50.5 mls @ 100 mls/hr IV NOW ONE Stop: 05/02/19 12:30 Last Admin: 05/02/19 11:57 Dose: 100 mls/hr Magnesium Oxide (Magnesium Oxide) 400 mg PO DAILY COUNTS INCLUDE 234 BEDS AT THE [facility] Last Admin: 05/03/19 08:47 Dose: 400 mg Pantoprazole Sodium (Protonix Iv) 80 mg IVPUSH .BOLUS COUNTS INCLUDE 234 BEDS AT THE [facility] Last Admin: 05/02/19 09:54 Dose: 80 mg Propofol (Diprivan 20 Ml) Confirm Administered Dose 200 mg .ROUTE .STK-MED ONE Stop: 05/03/19 07:15 - Exam Quality Assessment: DVT Prophylaxis General: Alert, Cooperative, No Acute Distress. No: Oriented Lungs: Clear to Auscultation, Normal Respiratory Effort Cardiovascular: Regular Rate, No Murmurs, Irregular Rhythm GI/Abdominal Exam: Soft, Non-Tender, No Organomegaly, No Distention Extremities: Non-Tender, No Pedal Edema - Problem List Review Problem List Initiated/Reviewed/Updated: Yes - My Orders Last 24 Hours: My Active Orders 05/02/19 10:29 Resuscitation Status Routine 05/02/19 11:04 Patient Status [ADT] Routine Ambulate [RC] QID Blood Glucose Check, Bedside [RC] QIDACANDBED Cardiac Monitoring [RC] Q6H Communication Order [RC] STAT Diabetes Education [RC] .PRN Height and Weight [RC] DAILY Intake and Output [RC] Q12H Notify Provider Consults [RC] ASDIRECTED Notify Provider Vital Signs [RC] ASDIRECTED Notify Provider [RC] PRN Oxygen Therapy [RC] PRN Up With Assistance [RC] ASDIRECTED Up to Chair [RC] QID Vital Signs [RC] Q2H Consult to Physician [CONS] Routine Acetaminophen [Tylenol] 650 mg PO Q4H PRN Dextrose 50% in Water 50 ml IV ONETIME PRN Dextrose [Glutose 15] 15 gm PO ONETIME PRN Insulin Lispro [HumaLOG] See Protocol SUBCUT QIDACANDBED Lactated Ringers [Ringers, Lactated] 1,000 ml IV ASDIRECTED Ondansetron [Zofran] 4 mg IV Q4H PRN Sodium Chloride 0.9% [Saline Flush] 10 ml FLUSH ASDIRECTED PRN Peripheral IV Insertion Adult [OM.PC] Routine Sequential Compression Device [OM.PC] Per Unit Routine Transfuse Fresh Frozen Plasma [COMM] Stat VTE Pharmacological Contraindications [AST] Per Unit Routine 05/02/19 11:15 FRESH FROZEN PLASMA [BBK] Stat PATIENT RETYPE [BBK] Stat RED BLOOD CELLS LP [BBK] Stat TYPE AND SCREEN [BBK] Stat 05/02/19 12:00 Sodium Chloride 0.9% [Normal Saline] 100 ml Pantoprazole [ProTONIX IV] 80 mg IV 10 mls/hr 05/02/19 21:00 Donepezil [Aricept] 10 mg PO BEDTIME Melatonin 9 mg PO BEDTIME Pravastatin [Pravachol] 40 mg PO BEDTIME 05/03/19 07:30 Levothyroxine [Synthroid] 125 mcg PO ACBREAKFAST 05/03/19 09:00 Aspirin [Halfprin] 81 mg PO DAILY Citalopram [Celexa] 10 mg PO DAILY Doxazosin [Cardura] 8 mg PO DAILY Insulin Glarg,Human.Rec.Analog [LantUS Solostar] 20 units SUBCUT DAILY Potassium Chloride 10 meq PO DAILY 05/03/19 10:00 Magnesium Sulfate/Water [Magnesium Sulfate in Water Premix] 2 gm Premix Bag 1 bag IV ONETIME 05/03/19 13:00 HGB [HEMOGLOBIN] [HEME] Stat 05/03/19 21:00 HGB [HEMOGLOBIN] [HEME] Stat Magnesium Oxide 400 mg PO BID 05/04/19 05:00 BASIC METABOLIC PANEL,BMP [CHEM] Timed CBC WITH AUTO DIFF [HEME] Timed INR,PT,PROTHROMBIN TIME [COAG] Timed MAGNESIUM [CHEM] Timed 05/04/19 07:30 GLUCOSE POC LAB TO COLLECT [POC] QIDACANDBED 05/04/19 11:30 GLUCOSE POC LAB TO COLLECT [POC] QIDACANDBED 05/04/19 16:30 GLUCOSE POC LAB TO COLLECT [POC] QIDACANDBED 05/04/19 21:00 GLUCOSE POC LAB TO COLLECT [POC] QIDACANDBED 05/05/19 07:30 GLUCOSE POC LAB TO COLLECT [POC] QIDACANDBED 05/05/19 11:30 GLUCOSE POC LAB TO COLLECT [POC] QIDACANDBED 05/05/19 16:30 GLUCOSE POC LAB TO COLLECT [POC] QIDACANDBED 05/05/19 21:00 GLUCOSE POC LAB TO COLLECT [POC] QIDACANDBED 05/06/19 07:30 GLUCOSE POC LAB TO COLLECT [POC] QIDACANDBED 05/06/19 11:30 GLUCOSE POC LAB TO COLLECT [POC] QIDACANDBED 05/06/19 16:30 GLUCOSE POC LAB TO COLLECT [POC] QIDACANDBED 05/06/19 21:00 GLUCOSE POC LAB TO COLLECT [POC] QIDACANDBED 05/07/19 07:30 GLUCOSE POC LAB TO COLLECT [POC] QIDACANDBED - Plan Plan:: ASSESSMENT AND PLAN DIFFUSE ESOPHAGITIS WITH UPPER GI BLEED-her some bleeding confirmed on EGD performed earlier this morning by Dr. Rocha -Serial hemoglobin levels -Hold warfarin -Full liquid diet -Saline lock IV -Type and cross to hold 2 units of red blood cells -Continuous IV infusion of Protonix -Surgical follow-up per Dr. Rocha ACUTE BLOOD LOSS ANEMIA-hemoglobin down slightly from baseline, expect further drop with hydration -Management as above ATRIAL FIBRILLATION-on long-term oral anticoagulation with warfarin -Hold warfarin -Vitamin K and fresh frozen plasma as above TYPE 2 DIABETES MELLITUS -Continue usual dose of long acting insulin -4 times a day glucometers -Low-dose sliding scale insulin DEMENTIA -Continue outpatient medical regimen -Melatonin 9 mg by mouth daily at bedtime MAINTENANCE ISSUES -DVT prophylaxis; scuds, hold on anticoagulation because of active bleeding -GI prophylaxis; Protonix as above -Herrera catheter; not indicated -Nutrition; nothing by mouth -Nicotine dependence; not required CODE STATUS-FULL CODE ADMISSION STATUS-patient will be admitted to inpatient status, expect at least a 2 night hospital stay for evaluation and management of problems as outlined above. At the time of this admission I do not reasonably expected evaluation and management of this problem will require more than a 96 hour hospital stay. DISPOSITION-anticipate discharge to home after the hospital stay. PRIMARY CARE PROVIDER-Dr. Bolivar
[2019-05-03] MEDS ORDERED: Magnesium Sulfate/Water 2 GM in Premix Bag 1 BAG IV ONE (10:00)
[2019-05-03] MEDS: Sucralfate Suspension 1 GM/10 ML Cup PO SCH ×3 (10:33→20:37)
[2019-05-03] MEDS: Donepezil 10 MG Tab PO SCH (20:37)
[2019-05-03] MEDS: Magnesium Oxide 400 MG Tab PO SCH (20:37)
[2019-05-03] MEDS: Pravastatin 20 MG Tab PO SCH (20:37)
[2019-05-03] MEDS: Melatonin 3 MG Tab PO SCH (20:37)
[2019-05-04] MEDS: Sodium Chloride 0.9% 100 ML with Pantoprazole 80 MG IV SCH ×2 (01:03)
[2019-05-04] MEDS: Levothyroxine 100 MCG, Levothyroxine 25 MCG PO SCH ×2 (07:31)
[2019-05-04] MEDS: Sucralfate Suspension 1 GM/10 ML Cup PO SCH ×4 (07:31→20:38)
[2019-05-04] MEDS: Insulin Lispro 100 Unit/ML 3 ML KwikPen SUBCUT SCH ×4 (07:34→21:18)
[2019-05-04] MEDS: Potassium Chloride 10 MEQ Cap.ER PO SCH (08:18)
[2019-05-04] MEDS: Citalopram 10 MG Tab PO SCH (08:19)
[2019-05-04] MEDS: Aspirin 81 MG Tab.EC PO SCH (08:19)
[2019-05-04] MEDS: Magnesium Oxide 400 MG Tab PO SCH ×2 (08:19→20:38)
[2019-05-04] MEDS: Doxazosin 4 MG Tab PO SCH (08:19)
[2019-05-04] MEDS: Insulin Glargine,Human Rec. Analog 100 Units/ML 3 ML Pen SUBCUT SCH (08:20)
--- NOTE | 2019-05-04 09:36 | PCM.PN ---
- General Info Date of Service: 05/04/19 Subjective Update: Mr. Palmer has continued to show evidence of slow GI blood loss, hemoglobin this morning is dropped to 8.4. Bleeding does seem to be decreasing, stool this morning showed mixed melena with brown stool. He is tolerating current diet and has been hemodynamically stable. Functional Status: Reports: Tolerating Diet, Urinating - Review of Systems General: Reports: Weakness. Denies: Fever, Chills Pulmonary: Reports: No Symptoms Cardiovascular: Reports: No Symptoms Gastrointestinal: Reports: Melena. Denies: Abdominal Pain, Diarrhea, Difficulty Swallowing, Nausea, Vomiting - Patient Data Vitals - Most Recent: Last Vital Signs Temp 97.3 F 05/04/19 08:00 Pulse 71 05/04/19 08:00 Resp 20 05/04/19 08:00 BP 112/57 L 05/04/19 08:19 Pulse Ox 95 05/04/19 08:00 Orthostatic Blood Pressure [ 100/58 Standing] Orthostatic Blood Pressure [ 108/63 Sitting] Orthostatic Blood Pressure [ 123/72 Supine] Weight - Most Recent: 205 lb 3.194 oz I&O - Last 24 Hours: Intake & Output 05/03/19 05/04/19 05/04/19 22:59 06:59 14:59 Intake Total 243 Output Total 625 225 350 Balance -625 18 -350 Lab Results Last 24 Hours: Laboratory Results - last 24 hr 05/03/19 05/03/19 05/04/19 Range/Units 13:00 21:00 04:19 WBC 5.3 (4.5-11.0) K/uL RBC 2.72 L (4.30-5.90) M/uL Hgb 9.0 L 8.6 L 8.4 L (12.0-15.0) g/dL Hct 25.0 L (40.0-54.0) % MCV 92 (80-98) fL MCH 31 (27-31) pg MCHC 34 (32-36) % Plt Count 140 L (150-400) K/uL Neut % (Auto) 68 H (36-66) % Lymph % (Auto) 21 L (24-44) % [place] % (Auto) 7 H (2-6) % Eos % (Auto) 3 (2-4) % Baso % (Auto) 0 (0-1) % PT (9.5-12.0) sec INR (0.80-1.20) Sodium (140-148) mmol/L Potassium (3.6-5.2) mmol/L Chloride (100-108) mmol/L Carbon Dioxide (21-32) mmol/L Anion Gap (5.0-14.0) mmol/L BUN (7-18) mg/dL Creatinine (0.8-1.3) mg/dL Est Cr Clr Drug Dosing mL/min Estimated GFR (MDRD) (>60) Glucose (74-106) mg/dL Calcium (8.5-10.1) mg/dL Magnesium (1.8-2.4) mg/dL 05/04/19 05/04/19 Range/Units 04:19 04:19 WBC (4.5-11.0) K/uL RBC (4.30-5.90) M/uL Hgb (12.0-15.0) g/dL Hct (40.0-54.0) % MCV (80-98) fL MCH (27-31) pg MCHC (32-36) % Plt Count (150-400) K/uL Neut % (Auto) (36-66) % Lymph % (Auto) (24-44) % [place]kins % (Auto) (2-6) % Eos % (Auto) (2-4) % Baso % (Auto) (0-1) % PT 12.1 H (9.5-12.0) sec INR 1.11 (0.80-1.20) Sodium 141 (140-148) mmol/L Potassium 3.3 L (3.6-5.2) mmol/L Chloride 107 (100-108) mmol/L Carbon Dioxide 24 (21-32) mmol/L Anion Gap 13.3 (5.0-14.0) mmol/L BUN 22 H (7-18) mg/dL Creatinine 1.0 (0.8-1.3) mg/dL Est Cr Clr Drug Dosing 59.36 mL/min Estimated GFR (MDRD) > 60 (>60) Glucose 94 (74-106) mg/dL Calcium 8.0 L (8.5-10.1) mg/dL Magnesium 1.8 (1.8-2.4) mg/dL Med Orders - Current: Current Medications Acetaminophen (Tylenol) 650 mg PO Q4H PRN PRN Reason: Pain (Mild 1-3)/fever Aspirin (Halfprin) 81 mg PO DAILY [facility] Last Admin: 05/04/19 08:19 Dose: 81 mg Citalopram Hydrobromide (Celexa) 10 mg PO DAILY [facility] Last Admin: 05/04/19 08:19 Dose: 10 mg Dextrose (Glutose 15) 15 gm PO ONETIME PRN PRN Reason: Hypoglycemia Dextrose/Water (Dextrose 50% In Water) 50 ml IV ONETIME PRN PRN Reason: Hypoglycemia Donepezil HCl (Aricept) 10 mg PO BEDTIME [facility] Last Admin: 05/03/19 20:37 Dose: 10 mg Doxazosin Mesylate (Cardura) 8 mg PO DAILY [facility] Last Admin: 05/04/19 08:19 Dose: 8 mg Pantoprazole Sodium 80 mg/ (Sodium Chloride) 100 mls @ 10 mls/hr IV .Q10H [facility] Last Admin: 05/04/19 01:03 Dose: 10 mls/hr Potassium Chloride 20 meq/Lidocaine HCl 2 ml/ Sodium Chloride 112 mls @ 56 mls/ hr IV Q2H [facility] Stop: 05/04/19 13:59 Insulin Glargine (Lantus Solostar) 20 units SUBCUT DAILY [facility] Last Admin: 05/04/19 08:20 Dose: 20 units Insulin Human Lispro (Humalog) 0 unit SUBCUT QIDACANDBED [facility]; Protocol Last Admin: 05/04/19 07:34 Dose: Not Given Levothyroxine Sodium 100 mcg/ (Levothyroxine Sodium 25 mcg) 125 mcg PO ACBREAKFAST [facility] Last Admin: 05/04/19 07:31 Dose: 125 mcg Magnesium Oxide (Magnesium Oxide) 400 mg PO BID [facility] Last Admin: 05/04/19 08:19 Dose: 400 mg Melatonin (Melatonin) 9 mg PO BEDTIME [facility] Last Admin: 05/03/19 20:37 Dose: 9 mg Ondansetron HCl (Zofran) 4 mg IV Q4H PRN PRN Reason: Nausea/Vomiting Potassium Chloride (Potassium Chloride) 10 meq PO DAILY [facility] Last Admin: 05/04/19 08:18 Dose: 10 meq Potassium Chloride (Klor-Con M20) 40 meq PO ONETIME ONE Stop: 05/04/19 09:28 Potassium Chloride (Klor-Con M20) 40 meq PO ONETIME ONE Stop: 05/04/19 17:01 Pravastatin Sodium (Pravachol) 40 mg PO BEDTIME [facility] Last Admin: 05/03/19 20:37 Dose: 40 mg Sodium Chloride (Saline Flush) 10 ml FLUSH ASDIRECTED PRN PRN Reason: Keep Vein Open Sucralfate (Carafate) 0.5 gm PO QIDACANDBED [facility] Last Admin: 05/04/19 07:31 Dose: 0.5 gm Discontinued Medications Lactated Ringer's (Ringers, Lactated) 1,000 mls @ 500 mls/hr IV ASDIRECTED [facility] Last Admin: 05/02/19 09:53 Dose: 500 mls/hr Lactated Ringer's (Ringers, Lactated) 1,000 mls @ 125 mls/hr IV ASDIRECTED [facility] Last Admin: 05/03/19 09:44 Dose: 125 mls/hr Phytonadione 5 mg/ Sodium (Chloride) 50.5 mls @ 100 mls/hr IV NOW ONE Stop: 05/02/19 12:30 Last Admin: 05/02/19 11:57 Dose: 100 mls/hr Pantoprazole Sodium 80 mg/ (Sodium Chloride) 100 mls @ 10 mls/hr IV .Q10H [facility] Last Admin: 05/03/19 05:09 Dose: 10 mls/hr Magnesium Sulfate 2 gm/ Premix 50 mls @ 25 mls/hr IV ONETIME ONE Stop: 05/03/19 11:59 Last Admin: 05/03/19 10:33 Dose: 25 mls/hr Magnesium Oxide (Magnesium Oxide) 400 mg PO DAILY [facility] Last Admin: 05/03/19 08:47 Dose: 400 mg Pantoprazole Sodium (Protonix Iv) 80 mg IVPUSH .BOLUS [facility] Last Admin: 05/02/19 09:54 Dose: 80 mg Propofol (Diprivan 20 Ml) Confirm Administered Dose 200 mg .ROUTE .STK-MED ONE Stop: 05/03/19 07:15 - Exam Quality Assessment: DVT Prophylaxis General: Alert, Cooperative, No Acute Distress. No: Oriented Lungs: Clear to Auscultation, Normal Respiratory Effort Cardiovascular: Regular Rate, No Murmurs, Irregular Rhythm GI/Abdominal Exam: Soft, Non-Tender, No Organomegaly, No Distention Extremities: Non-Tender, No Pedal Edema - Problem List Review Problem List Initiated/Reviewed/Updated: Yes - My Orders Last 24 Hours: My Active Orders 05/03/19 09:00 Aspirin [Halfprin] 81 mg PO DAILY Citalopram [Celexa] 10 mg PO DAILY Doxazosin [Cardura] 8 mg PO DAILY Insulin Glarg,Human.Rec.Analog [LantUS Solostar] 20 units SUBCUT DAILY Potassium Chloride 10 meq PO DAILY 05/03/19 09:56 Convert IV to Saline Lock [OM.PC] Routine 05/03/19 15:00 Sodium Chloride 0.9% [Normal Saline] 100 ml Pantoprazole [ProTONIX IV] 80 mg IV 10 mls/hr 05/03/19 21:00 Magnesium Oxide 400 mg PO BID 05/04/19 09:26 Patient Status [ADT] Routine 05/04/19 09:27 Potassium Chloride [Klor-Con M20] 40 meq PO ONETIME ONE 05/04/19 10:00 Potassium Chloride 20 meq Lidocaine 1% [Xylocaine 1%] 2 ml Sodium Chloride 0.9 % [Normal Saline] 100 ml IV Q2H 05/04/19 17:00 HGB [HEMOGLOBIN] [HEME] Stat Potassium Chloride [Klor-Con M20] 40 meq PO ONETIME ONE 05/05/19 05:00 BASIC METABOLIC PANEL,BMP [CHEM] Timed CBC WITH AUTO DIFF [HEME] Timed 05/05/19 07:30 GLUCOSE POC LAB TO COLLECT [POC] QIDACANDBED 05/05/19 11:30 GLUCOSE POC LAB TO COLLECT [POC] QIDACANDBED 05/05/19 16:30 GLUCOSE POC LAB TO COLLECT [POC] QIDACANDBED 05/05/19 21:00 GLUCOSE POC LAB TO COLLECT [POC] QIDACANDBED 05/06/19 07:30 GLUCOSE POC LAB TO COLLECT [POC] QIDACANDBED 05/06/19 11:30 GLUCOSE POC LAB TO COLLECT [POC] QIDACANDBED 05/06/19 16:30 GLUCOSE POC LAB TO COLLECT [POC] QIDACANDBED 05/06/19 21:00 GLUCOSE POC LAB TO COLLECT [POC] QIDACANDBED 05/07/19 07:30 GLUCOSE POC LAB TO COLLECT [POC] QIDACANDBED - Plan Plan:: ASSESSMENT AND PLAN DIFFUSE ESOPHAGITIS WITH UPPER GI BLEED-further drop in hemoglobin over the last 24 hours, bleeding does seem to have slowed -Serial hemoglobin levels -Hold warfarin -Full liquid diet -Saline lock IV -Type and cross to hold 2 units of red blood cells -Protonix 40 mg IV every 12 hours -Surgical follow-up per Dr. Rocha ACUTE BLOOD LOSS ANEMIA-hemoglobin down slightly from baseline, expect further drop with hydration -Management as above ATRIAL FIBRILLATION-on long-term oral anticoagulation with warfarin -Hold warfarin -Vitamin K and fresh frozen plasma as above TYPE 2 DIABETES MELLITUS -Continue usual dose of long acting insulin -4 times a day glucometers -Low-dose sliding scale insulin DEMENTIA -Continue outpatient medical regimen -Melatonin 9 mg by mouth daily at bedtime MAINTENANCE ISSUES -DVT prophylaxis; scuds, hold on anticoagulation because of active bleeding -GI prophylaxis; Protonix as above -Herrera catheter; not indicated -Nutrition; nothing by mouth -Nicotine dependence; not required CODE STATUS-FULL CODE ADMISSION STATUS-patient will be admitted to inpatient status, expect at least a 2 night hospital stay for evaluation and management of problems as outlined above. At the time of this admission I do not reasonably expected evaluation and management of this problem will require more than a 96 hour hospital stay. DISPOSITION-anticipate discharge to home after the hospital stay. PRIMARY CARE PROVIDER-Dr. Bolivar
[2019-05-04] MEDS ORDERED: Potassium Chloride 20 MEQ Tab.ER PO ONE ×2 (10:00→17:00)
[2019-05-04] MEDS: Potassium Chloride 20 MEQ, Lidocaine 1% 2 ML in Sodium Chloride 0.9% 100 ML IV SCH ×2 (10:26→12:46)
[2019-05-04] MEDS: Pantoprazole 40 MG Vial IVPUSH SCH ×2 (10:26→22:04)
[2019-05-04] MEDS: Melatonin 3 MG Tab PO SCH (20:38)
[2019-05-04] MEDS: Donepezil 10 MG Tab PO SCH (20:39)
[2019-05-04] MEDS: Pravastatin 20 MG Tab PO SCH (20:39)
[2019-05-05] MEDS: Insulin Lispro 100 Unit/ML 3 ML KwikPen SUBCUT SCH ×4 (08:05→21:24)
[2019-05-05] MEDS: Citalopram 10 MG Tab PO SCH (08:13)
[2019-05-05] MEDS: Doxazosin 4 MG Tab PO SCH (08:13)
[2019-05-05] MEDS: Aspirin 81 MG Tab.EC PO SCH (08:13)
[2019-05-05] MEDS: Magnesium Oxide 400 MG Tab PO SCH ×2 (08:13→20:04)
[2019-05-05] MEDS: Potassium Chloride 10 MEQ Cap.ER PO SCH (08:14)
[2019-05-05] MEDS: Levothyroxine 100 MCG, Levothyroxine 25 MCG PO SCH ×2 (08:14)
[2019-05-05] MEDS: Sucralfate Suspension 1 GM/10 ML Cup PO SCH ×4 (08:14→20:04)
[2019-05-05] MEDS: Insulin Glargine,Human Rec. Analog 100 Units/ML 3 ML Pen SUBCUT SCH (08:15)
--- NOTE | 2019-05-05 12:38 | PCM.PN ---
- General Info Date of Service: 05/05/19 Subjective Update: Mr. Palmer has been stable since yesterday with no further evidence of active bleeding. Melenic stools have resolved in hemoglobin has been stable. He is feeling improved today with more energy and better appetite. Functional Status: Reports: Tolerating Diet, Ambulating, Urinating - Review of Systems General: Reports: Weakness. Denies: Fever, Chills Pulmonary: Reports: No Symptoms Cardiovascular: Reports: No Symptoms Gastrointestinal: Denies: Abdominal Pain, Diarrhea, Difficulty Swallowing, Hematochezia, Melena, Nausea, Vomiting - Patient Data Vitals - Most Recent: Last Vital Signs Temp 95.9 F 05/05/19 11:55 Pulse 60 05/05/19 11:55 Resp 16 05/05/19 11:55 BP 104/57 L 05/05/19 11:55 Pulse Ox 91 L 05/05/19 11:55 Orthostatic Blood Pressure [ 100/58 Standing] Orthostatic Blood Pressure [ 108/63 Sitting] Orthostatic Blood Pressure [ 123/72 Supine] Weight - Most Recent: 202 lb 6.4 oz I&O - Last 24 Hours: Intake & Output 05/04/19 05/05/19 05/05/19 22:59 06:59 14:59 Intake Total 1072 236 720 Output Total 475 800 Balance 597 -564 720 Lab Results Last 24 Hours: Laboratory Results - last 24 hr 05/02/19 05/04/19 05/05/19 Range/Units 09:47 17:00 06:00 WBC (4.5-11.0) K/uL RBC (4.30-5.90) M/uL Hgb 8.8 L (12.0-15.0) g/dL Hct (40.0-54.0) % MCV (80-98) fL MCH (27-31) pg MCHC (32-36) % Plt Count (150-400) K/uL Neut % (Auto) (36-66) % Lymph % (Auto) (24-44) % [place] % (Auto) (2-6) % Eos % (Auto) (2-4) % Baso % (Auto) (0-1) % Sodium 139 L (140-148) mmol/L Potassium 4.2 (3.6-5.2) mmol/L Chloride 107 (100-108) mmol/L Carbon Dioxide 25 (21-32) mmol/L Anion Gap 11.2 (5.0-14.0) mmol/L BUN 13 (7-18) mg/dL Creatinine 1.0 (0.8-1.3) mg/dL Est Cr Clr Drug Dosing 59.36 mL/min Estimated GFR (MDRD) > 60 (>60) Glucose 102 (74-106) mg/dL Calcium 8.6 (8.5-10.1) mg/dL Stool H. pylori Ag Negative (Negative) 05/05/19 Range/Units 06:06 WBC 6.0 (4.5-11.0) K/uL RBC 3.07 L (4.30-5.90) M/uL Hgb 9.3 L (12.0-15.0) g/dL Hct 28.3 L (40.0-54.0) % MCV 92 (80-98) fL MCH 30 (27-31) pg MCHC 33 (32-36) % Plt Count 158 (150-400) K/uL Neut % (Auto) 61 (36-66) % Lymph % (Auto) 27 (24-44) % [place] % (Auto) 8 H (2-6) % Eos % (Auto) 4 (2-4) % Baso % (Auto) 0 (0-1) % Sodium (140-148) mmol/L Potassium (3.6-5.2) mmol/L Chloride (100-108) mmol/L Carbon Dioxide (21-32) mmol/L Anion Gap (5.0-14.0) mmol/L BUN (7-18) mg/dL Creatinine (0.8-1.3) mg/dL Est Cr Clr Drug Dosing mL/min Estimated GFR (MDRD) (>60) Glucose (74-106) mg/dL Calcium (8.5-10.1) mg/dL Stool H. pylori Ag (Negative) Med Orders - Current: Current Medications Acetaminophen (Tylenol) 650 mg PO Q4H PRN PRN Reason: Pain (Mild 1-3)/fever Aspirin (Halfprin) 81 mg PO DAILY [facility] Last Admin: 05/05/19 08:13 Dose: 81 mg Citalopram Hydrobromide (Celexa) 10 mg PO DAILY [facility] Last Admin: 05/05/19 08:13 Dose: 10 mg Dextrose (Glutose 15) 15 gm PO ONETIME PRN PRN Reason: Hypoglycemia Dextrose/Water (Dextrose 50% In Water) 50 ml IV ONETIME PRN PRN Reason: Hypoglycemia Donepezil HCl (Aricept) 10 mg PO BEDTIME [facility] Last Admin: 05/04/19 20:39 Dose: 10 mg Doxazosin Mesylate (Cardura) 8 mg PO DAILY [facility] Last Admin: 05/05/19 08:13 Dose: 8 mg Insulin Glargine (Lantus Solostar) 20 units SUBCUT DAILY [facility] Last Admin: 05/05/19 08:15 Dose: 20 units Insulin Human Lispro (Humalog) 0 unit SUBCUT QIDACANDBED [facility]; Protocol Last Admin: 05/05/19 11:50 Dose: 1 unit Levothyroxine Sodium 100 mcg/ (Levothyroxine Sodium 25 mcg) 125 mcg PO ACBREAKFAST [facility] Last Admin: 05/05/19 08:14 Dose: 125 mcg Magnesium Oxide (Magnesium Oxide) 400 mg PO BID [facility] Last Admin: 05/05/19 08:13 Dose: 400 mg Melatonin (Melatonin) 9 mg PO BEDTIME [facility] Last Admin: 05/04/19 20:38 Dose: 9 mg Ondansetron HCl (Zofran) 4 mg IV Q4H PRN PRN Reason: Nausea/Vomiting Pantoprazole Sodium (Protonix) 40 mg PO BIDAC [facility] Potassium Chloride (Potassium Chloride) 10 meq PO DAILY [facility] Last Admin: 05/05/19 08:14 Dose: 10 meq Pravastatin Sodium (Pravachol) 40 mg PO BEDTIME [facility] Last Admin: 05/04/19 20:39 Dose: 40 mg Sodium Chloride (Saline Flush) 10 ml FLUSH ASDIRECTED PRN PRN Reason: Keep Vein Open Sucralfate (Carafate) 0.5 gm PO QIDACANDBED [facility] Last Admin: 05/05/19 11:46 Dose: 0.5 gm Discontinued Medications Lactated Ringer's (Ringers, Lactated) 1,000 mls @ 500 mls/hr IV ASDIRECTED [facility] Last Admin: 05/02/19 09:53 Dose: 500 mls/hr Lactated Ringer's (Ringers, Lactated) 1,000 mls @ 125 mls/hr IV ASDIRECTED [facility] Last Admin: 05/03/19 09:44 Dose: 125 mls/hr Phytonadione 5 mg/ Sodium (Chloride) 50.5 mls @ 100 mls/hr IV NOW ONE Stop: 05/02/19 12:30 Last Admin: 05/02/19 11:57 Dose: 100 mls/hr Pantoprazole Sodium 80 mg/ (Sodium Chloride) 100 mls @ 10 mls/hr IV .Q10H [facility] Last Admin: 05/03/19 05:09 Dose: 10 mls/hr Magnesium Sulfate 2 gm/ Premix 50 mls @ 25 mls/hr IV ONETIME ONE Stop: 05/03/19 11:59 Last Admin: 05/03/19 10:33 Dose: 25 mls/hr Pantoprazole Sodium 80 mg/ (Sodium Chloride) 100 mls @ 10 mls/hr IV .Q10H [facility] Last Admin: 05/04/19 01:03 Dose: 10 mls/hr Potassium Chloride 20 meq/Lidocaine HCl 2 ml/ Sodium Chloride 112 mls @ 56 mls/ hr IV Q2H [facility] Stop: 05/04/19 13:59 Last Admin: 05/04/19 12:46 Dose: 56 mls/hr Magnesium Oxide (Magnesium Oxide) 400 mg PO DAILY [facility] Last Admin: 05/03/19 08:47 Dose: 400 mg Pantoprazole Sodium (Protonix Iv) 80 mg IVPUSH .BOLUS [facility] Last Admin: 05/02/19 09:54 Dose: 80 mg Pantoprazole Sodium (Protonix Iv) 40 mg IVPUSH Q12H [facility] Last Admin: 05/04/19 22:04 Dose: 40 mg Potassium Chloride (Klor-Con M20) 40 meq PO ONETIME ONE Stop: 05/04/19 10:01 Last Admin: 05/04/19 10:25 Dose: 40 meq Potassium Chloride (Klor-Con M20) 40 meq PO ONETIME ONE Stop: 05/04/19 17:01 Last Admin: 05/04/19 17:26 Dose: 40 meq Propofol (Diprivan 20 Ml) Confirm Administered Dose 200 mg .ROUTE .STK-MED ONE Stop: 05/03/19 07:15 - Exam Quality Assessment: DVT Prophylaxis General: Alert, Cooperative, No Acute Distress. No: Oriented Lungs: Clear to Auscultation, Normal Respiratory Effort Cardiovascular: Regular Rate, No Murmurs, Irregular Rhythm GI/Abdominal Exam: Soft, Non-Tender, No Organomegaly, No Distention Extremities: Non-Tender, No Pedal Edema - Problem List Review Problem List Initiated/Reviewed/Updated: Yes - My Orders Last 24 Hours: My Active Orders 05/05/19 16:30 GLUCOSE POC LAB TO COLLECT [POC] QIDACANDBED Pantoprazole [ProTONIX] 40 mg PO BIDAC 05/05/19 21:00 GLUCOSE POC LAB TO COLLECT [POC] QIDACANDBED 05/05/19 Breakfast GI Soft Low Fiber [Soft Diet] [DIET] 05/06/19 05:11 HGB [HEMOGLOBIN] [HEME] AM 05/06/19 07:30 GLUCOSE POC LAB TO COLLECT [POC] QIDACANDBED 05/06/19 11:30 GLUCOSE POC LAB TO COLLECT [POC] QIDACANDBED 05/06/19 16:30 GLUCOSE POC LAB TO COLLECT [POC] QIDACANDBED 05/06/19 21:00 GLUCOSE POC LAB TO COLLECT [POC] QIDACANDBED 05/07/19 07:30 GLUCOSE POC LAB TO COLLECT [POC] QIDACANDBED - Plan Plan:: ASSESSMENT AND PLAN DIFFUSE ESOPHAGITIS WITH UPPER GI BLEED-hemoglobin stable over the last 24 hours with no further evidence of active bleeding -Recheck hemoglobin in a.m. -Hold warfarin -Soft low residue diet -Saline lock IV -Type and cross to hold 2 units of red blood cells -Protonix 40 mg po every 12 hours -Surgical follow-up per Dr. Rocha ACUTE BLOOD LOSS ANEMIA -Management as above ATRIAL FIBRILLATION-INR has normalized -Hold warfarin TYPE 2 DIABETES MELLITUS -Continue usual dose of long acting insulin -4 times a day glucometers -Low-dose sliding scale insulin DEMENTIA -Continue outpatient medical regimen -Melatonin 9 mg by mouth daily at bedtime MAINTENANCE ISSUES -DVT prophylaxis; scuds, hold on anticoagulation because of active bleeding -GI prophylaxis; Protonix as above -Herrera catheter; not indicated -Nutrition; nothing by mouth -Nicotine dependence; not required CODE STATUS-FULL CODE ADMISSION STATUS-patient will be admitted to inpatient status, expect at least a 2 night hospital stay for evaluation and management of problems as outlined above. At the time of this admission I do not reasonably expected evaluation and management of this problem will require more than a 96 hour hospital stay. DISPOSITION-anticipate discharge to home after the hospital stay. PRIMARY CARE PROVIDER-Dr. Bolivar
[2019-05-05] MEDS: Pantoprazole 40 MG Tab.CR PO SCH (17:04)
[2019-05-05] MEDS: Donepezil 10 MG Tab PO SCH (20:04)
[2019-05-05] MEDS: Melatonin 3 MG Tab PO SCH (20:04)
[2019-05-05] MEDS: Pravastatin 20 MG Tab PO SCH (20:04)
[2019-05-06 07:21] VITALS: BP 132/60
[2019-05-06] MEDS: Pantoprazole 40 MG Tab.CR PO SCH (07:42)
[2019-05-06] MEDS: Sucralfate Suspension 1 GM/10 ML Cup PO SCH ×2 (07:42→11:10)
[2019-05-06] MEDS: Levothyroxine 100 MCG, Levothyroxine 25 MCG PO SCH ×2 (07:43)
[2019-05-06] MEDS: Insulin Lispro 100 Unit/ML 3 ML KwikPen SUBCUT SCH ×2 (07:49→11:25)
--- NOTE | 2019-05-06 08:33 | OR ---
DATE OF PROCEDURE: 05/03/2019 SURGEON: Edilberto Rocha MD PREOPERATIVE DIAGNOSIS: Probable upper gastrointestinal bleeding. POSTOPERATIVE DIAGNOSIS: Upper gastrointestinal bleeding associated with ulcerative esophagitis. OPERATIVE PROCEDURE: Upper GI endoscopy. ANESTHESIA: IV sedation. INDICATIONS FOR PROCEDURE: This is an 84-year-old male presenting with probable upper gastrointestinal bleeding. Plan is to proceed with upper GI endoscopy with biopsies as indicated. Potential risks of the procedure including bleeding and perforation were discussed, and the patient wishes to proceed. DETAILS OF PROCEDURE: The patient was taken to the operating room, placed in a left lateral decubitus position. IV sedation was administered, after which the upper GI endoscope was passed orally through the length of the esophagus and the stomach with retroflexion view of the fundus, and thereafter through the pyloric channel into the junction of the third and fourth portions of the duodenum. Findings included some coffee-ground type material within the upper and mid esophagus. As one entered the distal esophagus, there were some obvious areas of ulceration. These did not appear to be particularly suspicious for malignancy but more of a severe esophagitis. One of these had some clotted blood on the surface, which was fairly red, but no active bleeding was seen. Within the proximal stomach, there was perhaps 2 to 3 tablespoons of blood, likewise was fairly red but no active bleeding was seen. The patient had otherwise no significant findings in the remainder of the stomach or in the visualized pyloric channel and duodenum. At this point, we opted not to proceed with any biopsies of the EG junction area to avoid additional problems with bleeding, and the scope was then withdrawn and the procedure was then concluded. Plan, at this point, will be to continue the proton pump inhibitor treatment per Dr. Mcintosh. I think we will add Carafate 500 mg q.i.d. on an empty stomach, which needs to be liquefied, and begin a full liquid diet. The patient should be scheduled for an outpatient upper endoscopy somewhere in the range of 3 weeks to assess the adequacy of healing, as well as obtain biopsies from the area of involvement at that point. Edilberto Rocha MD /[id number]
[2019-05-06] MEDS: Doxazosin 4 MG Tab PO SCH (09:00)
[2019-05-06] MEDS: Magnesium Oxide 400 MG Tab PO SCH (09:00)
[2019-05-06] MEDS: Aspirin 81 MG Tab.EC PO SCH (09:00)
[2019-05-06] MEDS: Citalopram 10 MG Tab PO SCH (09:00)
[2019-05-06] MEDS: Potassium Chloride 10 MEQ Cap.ER PO SCH (09:00)
[2019-05-06] MEDS: Insulin Glargine,Human Rec. Analog 100 Units/ML 3 ML Pen SUBCUT SCH (09:01)
--- NOTE | 2019-05-06 12:55 | PCM.DCSUM1 ---
Discharge Summary - Hospital Course Brief History: Mr. Palmer is an 84-year-old gentleman who was admitted through the emergency department with weakness secondary to upper GI bleed and acute blood loss anemia. - Discharge Data Discharge Date: 05/06/19 Discharge Disposition: Home, Self-Care 01 Condition: Fair - Discharge Diagnosis/Problem(s) (1) Acute blood loss anemia SNOMED Code(s): 273005072 ICD Code: D62 - ACUTE POSTHEMORRHAGIC ANEMIA Status: Acute Current Visit : Yes (2) Upper gastrointestinal hemorrhage SNOMED Code(s): 17441131 ICD Code: K92.2 - GASTROINTESTINAL HEMORRHAGE, UNSPECIFIED Status: Acute Current Visit: Yes (3) Melena SNOMED Code(s): 0926578 ICD Code: K92.1 - MELENA Status: Acute Current Visit: Yes (4) Type 2 diabetes mellitus SNOMED Code(s): 66793840 ICD Code: E11.9 - TYPE 2 DIABETES MELLITUS WITHOUT COMPLICATIONS Status: Chronic Current Visit: No (5) Erosive esophagitis SNOMED Code(s): 53252504 ICD Code: K22.10 - ULCER OF ESOPHAGUS WITHOUT BLEEDING Status: Acute Current Visit: Yes - Patient Summary/Data Consults: Consultations 05/02/19 11:04 Consult to Physician [CONS] Routine Consulting Provider: Edilberto Rocha Call Completed to Consulting Physician: Yes Reason for Consult: Melenic stool, EGD in am Hospital Course: Mr. Palmer is an 84-year-old gentleman who was admitted through the emergency department with an apparent upper GI bleed. He had been well until the morning of admission when staff at the assisted living facility noted a melenic- appearing stool. He was noted to be weak and reported that he did not feel well. On evaluation in the emergency department hemoglobin is down slightly from his baseline. He was found to be orthostatic with heme positive stool. He is on long-term oral anticoagulation for atrial fibrillation. INR was within therapeutic range. He is unable to provide meaningful history concerning symptoms or review of systems because of underlying dementia. On admission he was kept nothing by mouth and given IV fluids for hydration. He was given 1 unit of fresh frozen plasma as well as 5 mg of IV vitamin K. Serial hemoglobin levels were monitored and he did have drop in hemoglobin from admission secondary to dilution with IV fluids as well as ongoing bleeding. He was given IV bolus dose of Protonix 80 mg in the emergency department and after admission was started on a continuous infusion of Protonix. Following morning he was seen and evaluated by Dr. Rocha for surgical consult and EGD was performed, this showed evidence of a beer erosive gastritis as the likely source of recent blood loss and upper GI bleed. After the EGD was started on liquid Carafate 4 times daily. He did have a further drop in hemoglobin over the next 24 hours but after that hemoglobin remained stable with no further evidence of active bleeding. He was transitioned to oral Protonix and will be discharged on Protonix 40 mg twice daily as well as liquid Carafate 4 times daily. Activity will be as tolerated and he will be on a soft low residue diet. Follow-up EGD will be scheduled with Dr. Rocha in early May. His warfarin was discontinued on admission and he will remain off of warfarin after discharge until seen by Dr. Rocha for follow-up EGD. Follow-up appointment will be scheduled with primary care within 1 week, hemoglobin should be obtained at the time of follow-up appointment. Hemoglobin at the time of discharge is 8.9. - Patient Instructions Diet: GI Soft/Low Residue/Low Fiber Activity: As Tolerated Other/Special Instructions: Schedule follow-up appointment with Dr. Bolivar within one week, hemoglobin level should be obtained at the time of follow-up appointment. Please schedule follow-up EGD with Dr. Rocha in approximately 3 weeks. - Discharge Plan *PRESCRIPTION DRUG MONITORING PROGRAM REVIEWED*: Not Applicable *COPY OF PRESCRIPTION DRUG MONITORING REPORT IN PATIENT ANNA: Not Applicable Prescriptions/Med Rec: Pantoprazole [ProTONIX] 40 mg PO BIDAC #30 tab.cr Sucralfate [Carafate] 0.5 gm PO QIDACANDBED #600 ml Home Medications: Home Meds Insulin Glarg,Human.Rec.Analog [Lantus] 20 unit SUBCUT DAILY 11/10/13 [History] Levothyroxine [Synthroid] 125 mcg PO DAILY 11/10/13 [History] Lisinopril 10 mg PO DAILY 11/10/13 [History] Pravastatin [Pravachol] 40 mg PO DAILY 11/10/13 [History] Doxazosin Mesylate [Cardura XL] 8 mg PO DAILY 05/09/14 [History] Acetaminophen [Tylenol] 650 mg PO Q6H PRN 03/10/18 [History] Calcium Carbonate/Vitamin D3 [Calcium 600-Vit D3 800 Tab] 1 each PO DAILY [History] Gluc/Tremayne-Msm#1/Vit C/Darian/Bor [Wlpkdim-Ajsxl-GYM Complex Cplt] 1 each PO DAILY 03/10/18 [History] Methylsulfonylmethane [MSM] 2,000 mg PO DAILY 03/10/18 [History] Multivitamin [Multi-Vitamin Daily] 1 each PO DAILY 03/10/18 [History] Potassium Chloride [Klor-Con 10] 10 meq PO DAILY 03/10/18 [History] Aspirin [Halfprin] 81 mg PO DAILY 05/02/19 [History] Citalopram [Citalopram HBr] 10 mg PO DAILY 05/02/19 [History] Donepezil [Aricept] 10 mg PO BEDTIME 05/02/19 [History] Famotidine 20 mg PO DAILY 05/02/19 [History] Magnesium Chloride [Mag-64] 535 mg PO DAILY 05/02/19 [History] amLODIPine Besylate [Norvasc] 2.5 mg PO DAILY 05/02/19 [History] Pantoprazole [ProTONIX] 40 mg PO BIDAC #30 tab.cr 05/06/19 [Rx] Sucralfate [Carafate] 0.5 gm PO QIDACANDBED #600 ml 05/06/19 [Rx] Patient Handouts: Low-Fiber Eating Plan Referrals: Jose Bolivar MD [Primary Care Provider] - 05/10/19 1:40 pm (Please arrive 15 minutes early to register for appointment.) - Discharge Summary/Plan Comment DC Time >30 min.: No - Patient Data Vitals - Most Recent: Last Vital Signs Temp 96.9 F 05/06/19 07:00 Pulse 68 05/06/19 07:00 Resp 18 05/06/19 07:00 BP 132/60 05/06/19 09:00 Pulse Ox 95 05/06/19 07:00 Orthostatic Blood Pressure [ 100/58 Standing] Orthostatic Blood Pressure [ 108/63 Sitting] Orthostatic Blood Pressure [ 123/72 Supine] Weight - Most Recent: 200 lb 6.4 oz I&O - Last 24 hours: Intake & Output 05/05/19 05/06/1919 22:59 06:59 14:59 Intake Total 716 1240 Output Total 72 775 Balance -9 -775 1240 Lab Results - Last 24 hrs: Laboratory Results - last 24 hr 05/02/19 05/06/19 Range/Units 11:15 06:05 Hgb 8.9 L (12.0-15.0) g/dL Crossmatch See Detail Med Orders - Current: Current Medications Acetaminophen (Tylenol) 650 mg PO Q4H PRN PRN Reason: Pain (Mild 1-3)/fever Aspirin (Halfprin) 81 mg PO DAILY [facility] Last Admin: 05/06/19 09:00 Dose: 81 mg Citalopram Hydrobromide (Celexa) 10 mg PO DAILY [facility] Last Admin: 05/06/19 09:00 Dose: 10 mg Dextrose (Glutose 15) 15 gm PO ONETIME PRN PRN Reason: Hypoglycemia Dextrose/Water (Dextrose 50% In Water) 50 ml IV ONETIME PRN PRN Reason: Hypoglycemia Donepezil HCl (Aricept) 10 mg PO BEDTIME [facility] Last Admin: 05/05/19 20:04 Dose: 10 mg Doxazosin Mesylate (Cardura) 8 mg PO DAILY [facility] Last Admin: 05/06/19 09:00 Dose: 8 mg Insulin Glargine (Lantus Solostar) 20 units SUBCUT DAILY [facility] Last Admin: 05/06/19 09:01 Dose: 20 units Insulin Human Lispro (Humalog) 0 unit SUBCUT QIDACANDBED [facility]; Protocol Last Admin: 05/06/19 11:25 Dose: Not Given Levothyroxine Sodium 100 mcg/ (Levothyroxine Sodium 25 mcg) 125 mcg PO ACBREAKFAST [facility] Last Admin: 05/06/19 07:43 Dose: 125 mcg Magnesium Oxide (Magnesium Oxide) 400 mg PO BID [facility] Last Admin: 05/06/19 09:00 Dose: 400 mg Melatonin (Melatonin) 9 mg PO BEDTIME [facility] Last Admin: 05/05/19 20:04 Dose: 9 mg Ondansetron HCl (Zofran) 4 mg IV Q4H PRN PRN Reason: Nausea/Vomiting Pantoprazole Sodium (Protonix) 40 mg PO BIDAC [facility] Last Admin: 05/06/19 07:42 Dose: 40 mg Potassium Chloride (Potassium Chloride) 10 meq PO DAILY [facility] Last Admin: 05/06/19 09:00 Dose: 10 meq Pravastatin Sodium (Pravachol) 40 mg PO BEDTIME [facility] Last Admin: 05/05/19 20:04 Dose: 40 mg Sodium Chloride (Saline Flush) 10 ml FLUSH ASDIRECTED PRN PRN Reason: Keep Vein Open Sucralfate (Carafate) 0.5 gm PO QIDACANDBED [facility] Last Admin: 05/06/19 11:10 Dose: 0.5 gm Discontinued Medications Lactated Ringer's (Ringers, Lactated) 1,000 mls @ 500 mls/hr IV ASDIRECTED [facility] Last Admin: 05/02/19 09:53 Dose: 500 mls/hr Lactated Ringer's (Ringers, Lactated) 1,000 mls @ 125 mls/hr IV ASDIRECTED [facility] Last Admin: 05/03/19 09:44 Dose: 125 mls/hr Phytonadione 5 mg/ Sodium (Chloride) 50.5 mls @ 100 mls/hr IV NOW ONE Stop: 05/02/19 12:30 Last Admin: 05/02/19 11:57 Dose: 100 mls/hr Pantoprazole Sodium 80 mg/ (Sodium Chloride) 100 mls @ 10 mls/hr IV .Q10H [facility] Last Admin: 05/03/19 05:09 Dose: 10 mls/hr Magnesium Sulfate 2 gm/ Premix 50 mls @ 25 mls/hr IV ONETIME ONE Stop: 05/03/19 11:59 Last Admin: 05/03/19 10:33 Dose: 25 mls/hr Pantoprazole Sodium 80 mg/ (Sodium Chloride) 100 mls @ 10 mls/hr IV .Q10H [facility] Last Admin: 05/04/19 01:03 Dose: 10 mls/hr Potassium Chloride 20 meq/Lidocaine HCl 2 ml/ Sodium Chloride 112 mls @ 56 mls/ hr IV Q2H [facility] Stop: 05/04/19 13:59 Last Admin: 05/04/19 12:46 Dose: 56 mls/hr Magnesium Oxide (Magnesium Oxide) 400 mg PO DAILY [facility] Last Admin: 05/03/19 08:47 Dose: 400 mg Pantoprazole Sodium (Protonix Iv) 80 mg IVPUSH .BOLUS [facility] Last Admin: 05/02/19 09:54 Dose: 80 mg Pantoprazole Sodium (Protonix Iv) 40 mg IVPUSH Q12H [facility] Last Admin: 05/04/19 22:04 Dose: 40 mg Potassium Chloride (Klor-Con M20) 40 meq PO ONETIME ONE Stop: 05/04/19 10:01 Last Admin: 05/04/19 10:25 Dose: 40 meq Potassium Chloride (Klor-Con M20) 40 meq PO ONETIME ONE Stop: 05/04/19 17:01 Last Admin: 05/04/19 17:26 Dose: 40 meq Propofol (Diprivan 20 Ml) Confirm Administered Dose 200 mg .ROUTE .STK-MED ONE Stop: 05/03/19 07:15 - Exam General: Reports: Alert, Cooperative, No Acute Distress. Denies: Oriented Lungs: Reports: Clear to Auscultation, Normal Respiratory Effort Cardiovascular: Reports: Regular Rate, Regular Rhythm, No Murmurs GI/Abdominal Exam: Soft, Non-Tender, No Organomegaly, No Distention Extremities: Non-Tender, No Pedal Edema *Q Meaningful Use (DIS) - VTE *Q VTE Pharmacological Contraindications *Q: Active Hemorrhage
== END 2019-05-06 14:00 | disposition home or self-care (01) | DRG 381 ==
LOC: JP.ED 08:35 → JP.ICU 10:24 → JP.MS 05-04 13:20
PROVIDERS: ADMIT Hospitalist; ATTEND Hospitalist
PROC: 30233K1 Transfusion of Nonautologous Frozen Plasma into Peripheral Vein, Percutaneous Approach (ICD-10-PCS; principal; 2019-05-02)
PROC: 0DJ08ZZ Inspection of Upper Intestinal Tract, Via Natural or Artificial Opening Endoscopic (ICD-10-PCS; 2019-05-03)
DX: K22.11 Ulcer of esophagus with bleeding (principal); D62 Acute posthemorrhagic anemia; I95.1 Orthostatic hypotension; K92.1 Melena; I10 Essential (primary) hypertension; R53.1 Weakness; E11.9 Type 2 diabetes mellitus without complications; Z79.4 Long term (current) use of insulin; I48.91 Unspecified atrial fibrillation; Z79.01 Long term (current) use of anticoagulants; F03.90 Unspecified dementia, unspecified severity, without behavioral disturbance, psychotic disturbance, mood disturbance, and anxiety; H91.90 Unspecified hearing loss, unspecified ear; G54.7 Phantom limb syndrome without pain; M19.90 Unspecified osteoarthritis, unspecified site; E78.00 Pure hypercholesterolemia, unspecified; Z85.828 Personal history of other malignant neoplasm of skin; Z96.649 Presence of unspecified artificial hip joint; Z79.82 Long term (current) use of aspirin; Z88.0 Allergy status to penicillin; Z79.899 Other long term (current) drug therapy
CPT/HCPCS: 36415; 36430; 80048; 82272; 82962; 83735; 85018; 85025; 85027; 85610; 86850; 86900; 86901; 86920; 86922; 87338; 96361; 96374; 99285-25; A9270-GY; C9113; J1815; J1815-GY; J2001; J2704; J3430; J3475; J3480; J7030; J7050; J7120; P9017

== ENCOUNTER 2019-05-30 06:52 | Day surgery (SDC) | payer MEDICARE, BC ==
[2019-05-30] MEDS ORDERED: Propofol 200 MG/20 ML SDV ONE (07:02)
[2019-05-30] MEDS ORDERED: fentaNYL 100 MCG/2 ML SDV ONE (07:02)
[2019-05-30] MEDS ORDERED: Meropenem 500 MG in Sodium Chloride 0.9% 50 ML IV ONE (07:30)
[2019-05-30] MEDS ORDERED: Dextrose 5%-Lactated Ringers 1,000 ML IV SCH (07:30)
[2019-05-30 11:08] VITALS: BP 114/67; PULSE 62
--- NOTE | 2019-06-10 18:51 | OR ---
DATE OF PROCEDURE: 05/30/2019 PREOPERATIVE DIAGNOSIS: Recently diagnosed severe esophagitis. POSTOPERATIVE DIAGNOSIS: Healed esophagitis. OPERATIVE PROCEDURE: Esophagogastroduodenoscopy with biopsies of esophagogastric junction. ANESTHESIA: IV sedation. INDICATIONS FOR PROCEDURE: This is an 84-year-old recently admitted with a GI bleed. He was noted at that time to have quite severe esophagitis and was placed on a combination of proton pump inhibitors as well as Carafate. He has not had any further evidence of GI bleeding. He is here for followup upper endoscopy to assess healing and we later at this point also obtain biopsies of esophagogastric junction to make sure he has no problems with Encarnacion's esophagus or more advanced neoplastic changes. Potential risks of the procedure including bleeding and perforation were discussed with the patient and daughter and they wished to proceed. DETAILS OF PROCEDURE: The patient was taken to the operating room and placed in a left lateral decubitus position. IV sedation was administered, after which the upper GI endoscope was passed orally through the length of the esophagus and into the stomach with retroflexion view of the fundus and thereafter, through the pyloric channel and into the proximal duodenum. Findings included normal hypopharynx, larynx, upper esophageal sphincter, and the esophageal body. At this point, the previous severe esophagitis was quite healed. There was some upward extension of the gastroesophageal junction and the mucosal line, but no ulceration and minimal if any gross inflammation. There was no stricturing, plaquing, or other signs of neoplastic change. Remainder of the gastric and duodenal exams were unremarkable. At this point, biopsies were obtained from esophagogastric junction, sent for histologic evaluation, minimal bleeding from the biopsy site was seen, and the procedure was then concluded. 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 I think it would be reasonable to stop the Carafate at this time and then he will be followed clinically per Dr. Bolivar and the [facility] staff. Edilberto Rocha MD /[id number]
== END 2019-05-30 11:13 | disposition other institution (70) ==
LOC: JP.SDS 06:52
PROVIDERS: ATTEND Surgery
DX: K20.9 Esophagitis, unspecified (principal); E11.9 Type 2 diabetes mellitus without complications; E03.9 Hypothyroidism, unspecified; K21.9 Gastro-esophageal reflux disease without esophagitis; I71.2 Thoracic aortic aneurysm, without rupture; I21.4 Non-ST elevation (NSTEMI) myocardial infarction; Z88.0 Allergy status to penicillin
CPT/HCPCS: 36415; 43239; 85610; 88305; J2185; J2704; J3010; J7042; J7050

== ENCOUNTER 2019-08-20 21:12 | Emergency (ER) | payer MEDICARE, BC ==
[2019-08-20 21:18] VITALS: BP 145/84; PULSE 70
--- NOTE | 2019-08-20 21:32 | EDM.PDOC ---
ED HPI GENERAL MEDICAL PROBLEM - General Chief Complaint: Neck Problem Stated Complaint: MEDICAL Time Seen by Provider: 08/20/19 21:25 Source of Information: Reports: Patient, Family, RN Notes Reviewed History Limitations: Reports: No Limitations - History of Present Illness INITIAL COMMENTS - FREE TEXT/NARRATIVE: 84-year-old gentleman presents emergency department today with concern about a lump on his head, he states he just noticed this today is really no other symptoms no fevers no sign of infection he does have a bruise with a break in the skin on the scalp he does not recall how he injured himself head Pain Score (Numeric/FACES): 4 - Related Data Allergies Allergy/AdvReac Type Severity Reaction Status Date / Time Penicillins Allergy Hives Verified 08/20/19 21:20 Home Meds: Home Meds Insulin Glarg,Human.Rec.Analog [Lantus] 18 unit SUBCUT DAILY 11/10/13 [History] Levothyroxine [Synthroid] 125 mcg PO DAILY 11/10/13 [History] Lisinopril 10 mg PO DAILY 11/10/13 [History] Pravastatin [Pravachol] 40 mg PO DAILY 11/10/13 [History] Doxazosin Mesylate [Cardura XL] 8 mg PO DAILY 05/09/14 [History] Acetaminophen [Tylenol] 650 mg PO Q6H PRN 03/10/18 [History] Calcium Carbonate/Vitamin D3 [Calcium 600-Vit D3 800 Tab] 1 each PO DAILY [History] Gluc/Tremayne-Msm#1/Vit C/Darian/Bor [Jkgrrgn-Ltudo-EAC Complex Cplt] 1 each PO DAILY 03/10/18 [History] Methylsulfonylmethane [MSM] 2,000 mg PO DAILY 03/10/18 [History] Multivitamin [Multi-Vitamin Daily] 1 each PO DAILY 03/10/18 [History] Potassium Chloride [Klor-Con 10] 10 meq PO BID 03/10/18 [History] Aspirin [Halfprin] 81 mg PO DAILY 05/02/19 [History] Citalopram [Citalopram HBr] 10 mg PO DAILY 05/02/19 [History] Donepezil [Aricept] 10 mg PO BEDTIME 05/02/19 [History] Famotidine 20 mg PO DAILY 05/02/19 [History] Magnesium Chloride [Mag-64] 535 mg PO DAILY 05/02/19 [History] amLODIPine Besylate [Norvasc] 2.5 mg PO DAILY 05/02/19 [History] Pantoprazole [ProTONIX] 40 mg PO BIDAC #30 tab.cr 05/06/19 [Rx] Sucralfate [Carafate] 0.5 gm PO QIDACANDBED #600 ml 05/06/19 [Rx] Warfarin Sodium [Coumadin] 5 mg PO DAILY 05/27/19 [History] Past Medical History HEENT History: Reports: Cataract, Hard of Hearing, Impaired Vision Cardiovascular History: Reports: CAD, High Cholesterol, Hypertension, [place], Pacemaker Respiratory History: Reports: SOB Gastrointestinal History: Reports: GI Bleed Musculoskeletal History: Reports: Osteoarthritis Psychiatric History: Reports: Dementia, Depression Endocrine/Metabolic History: Reports: Diabetes, Type II, IDDM Other Oncologic History: skin CA - Infectious Disease History Infectious Disease History: Reports: Other (See Below) Other Infectious Disease History: pt not sure - Past Surgical History HEENT Surgical History: Reports: Cataract Surgery Cardiovascular Surgical History: Reports: Coronary Artery Stent GI Surgical History: Reports: Appendectomy, Colonoscopy, EGD, Hernia, Inguinal Male Surgical History: Reports: None Musculoskeletal Surgical History: Reports: Hip Replacement, Other (See Below) Other Musculoskeletal Surgeries/Procedures:: both hips replaced Dermatological Surgical History: Reports: None Social & Family History - Family History Cardiac: Reports: ME Neurological: Reports: CVA Endocrine/Metabolic: Reports: Diabetes, type II - Tobacco Use Smoking Status *Q: Never Smoker - Caffeine Use Caffeine Use: Reports: Coffee ED ROS GENERAL - Review of Systems Review Of Systems: See Below Constitutional: Reports: No Symptoms HEENT: Reports: Other (Lump back of the head) Respiratory: Reports: No Symptoms Cardiovascular: Reports: No Symptoms GI/Abdominal: Reports: No Symptoms Skin: Reports: Wound ED EXAM, GENERAL - Physical Exam Exam: See Below Free Text/Narrative:: Examination scalp I do appreciate some lymphadenopathy posterior cervical chain right side there is also a break in the skin on the scalp a mild erythema around this Exam Limited By: No Limitations General Appearance: Alert, WD/WN, No Apparent Distress Respiratory/Chest: No Respiratory Distress, Lungs Clear, Normal Breath Sounds, No Accessory Muscle Use, Chest Non-Tender Cardiovascular: Regular Rate, Rhythm, No Murmur Course - Vital Signs Last Recorded V/S: Last Vital Signs Temp 97.0 F 08/20/19 21:19 Pulse 70 08/20/19 21:19 Resp 14 08/20/19 21:19 BP 145/84 H 08/20/19 21:19 Pulse Ox 97 08/20/19 21:19 - Orders/Labs/Meds Labs: Laboratory Tests 08/20/19 08/20/19 Range/Units 21:47 21:47 WBC 5.2 (4.5-11.0) K/uL RBC 4.20 L (4.30-5.90) M/uL Hgb 12.1 D (12.0-15.0) g/dL Hct 36.8 L (40.0-54.0) % MCV 88 (80-98) fL MCH 29 (27-31) pg MCHC 33 (32-36) % Plt Count 146 L (150-400) K/uL Neut % (Auto) 57 (36-66) % Lymph % (Auto) 30 (24-44) % [place] % (Auto) 12 H (2-6) % Eos % (Auto) 2 (2-4) % Baso % (Auto) 0 (0-1) % Sodium 138 L (140-148) mmol/L Potassium 3.8 (3.6-5.2) mmol/L Chloride 103 (100-108) mmol/L Carbon Dioxide 27 (21-32) mmol/L Anion Gap 11.8 (5.0-14.0) mmol/L BUN 23 H D (7-18) mg/dL Creatinine 1.2 (0.8-1.3) mg/dL Est Cr Clr Drug Dosing 49.40 mL/min Estimated GFR (MDRD) 58 L (>60) Glucose 137 H (74-106) mg/dL Calcium 8.8 (8.5-10.1) mg/dL Departure - Departure Time of Disposition: 22:15 Disposition: Home, Self-Care 01 Condition: Fair Clinical Impression: Cervical lymphadenopathy, Cervical lymphadenopathy - Discharge Information Referrals: Jose Bolivar MD [Primary Care Provider] - Forms: ED Department Discharge Additional Instructions: Use Tylenol or Motrin as needed for pain control, Please followup with your primary care provider in 3-5 days if not better, please call return to the emergency department with worsening of symptoms. - Assessment/Plan Plan: Assessment Acuity = acute Site and laterality = posterior cervical lymphadenopathy right Etiology = probable local infection Manifestations = none Location of injury = Home Lab values = CBC, BMP unremarkable Plan Recommend watchful waiting at this time follow-up primary care 3-5 days if not better This note was dictated using [employer] voice recognition software please call with any questions on syntax or grammar.
== END 2019-08-20 22:35 | disposition home or self-care (01) ==
LOC: JP.ED 21:12
DX: R59.1 Generalized enlarged lymph nodes (principal); Z88.0 Allergy status to penicillin; I10 Essential (primary) hypertension; E11.9 Type 2 diabetes mellitus without complications; I25.10 Atherosclerotic heart disease of native coronary artery without angina pectoris; I25.2 Old myocardial infarction; E78.00 Pure hypercholesterolemia, unspecified; F32.9 Major depressive disorder, single episode, unspecified; M19.90 Unspecified osteoarthritis, unspecified site; Z79.4 Long term (current) use of insulin; Z79.82 Long term (current) use of aspirin; Z79.01 Long term (current) use of anticoagulants; Z79.899 Other long term (current) drug therapy
CPT/HCPCS: 36415; 80048; 85025; 99282; 99283

== ENCOUNTER 2019-11-17 19:31 | Emergency (ER) | payer MEDICARE, BC ==
[2019-11-17 19:43] VITALS: BP 121/60; PULSE 70
--- NOTE | 2019-11-17 20:41 | EDM.PDOC ---
ED HPI GENERAL MEDICAL PROBLEM - General Chief Complaint: General Stated Complaint: SOB/OXYGEN LEVELS LOW Time Seen by Provider: 11/17/19 19:50 Source of Information: Reports: Patient, Family History Limitations: Reports: No Limitations - History of Present Illness INITIAL COMMENTS - FREE TEXT/NARRATIVE: 84-year-old male was been having episodes of intermittent hypoxia over the past several days, also some diarrhea. He was seen in the clinic earlier today and evaluated with a chest x-ray and labs, an attempt was made to set him up with home O2 at the assisted living but they were unable to do that because he needs to "control it himself". They brought him in tonight to ask what to do. On arrival the patient was comfortable with O2 sats at 95% on room air. The patient himself has no complaints and the family admits that he seems fine at this time. Onset: Unknown/Unsure Associated Symptoms: Reports: Other (Also been having some diarrhea intermittent ) Treatments BOWLING BALL MOLDER: Reports: Other (see below) Other Treatments BOWLING BALL MOLDER: none - Related Data Allergies Allergy/AdvReac Type Severity Reaction Status Date / Time Penicillins Allergy Hives Verified 11/17/19 20:01 Home Meds: Home Meds Insulin Glarg,Human.Rec.Analog [Lantus] 18 unit SUBCUT DAILY 11/10/13 [History] Levothyroxine [Synthroid] 125 mcg PO DAILY 11/10/13 [History] Lisinopril 10 mg PO DAILY 11/10/13 [History] Pravastatin [Pravachol] 40 mg PO DAILY 11/10/13 [History] Doxazosin Mesylate [Cardura XL] 8 mg PO DAILY 05/09/14 [History] Acetaminophen [Tylenol] 650 mg PO Q6H PRN 03/10/18 [History] Calcium Carbonate/Vitamin D3 [Calcium 600-Vit D3 800 Tab] 1 each PO DAILY [History] Glucosam/Chond-Msm1/C/Darian/Bor [Wxdsonh-Xjmqc-FPB Complex Cplt] 1 each PO DAILY 03/10/18 [History] Methylsulfonylmethane [MSM] 2,000 mg PO DAILY 03/10/18 [History] Multivitamin [Multi-Vitamin Daily] 1 each PO DAILY 03/10/18 [History] Potassium Chloride [Klor-Con 10] 10 meq PO BID 03/10/18 [History] Aspirin [Halfprin] 81 mg PO DAILY 05/02/19 [History] Citalopram [Citalopram HBr] 10 mg PO DAILY 05/02/19 [History] Donepezil [Aricept] 10 mg PO BEDTIME 05/02/19 [History] Famotidine 20 mg PO DAILY 05/02/19 [History] Magnesium Chloride [Mag-64] 535 mg PO DAILY 05/02/19 [History] amLODIPine Besylate [Norvasc] 2.5 mg PO DAILY 05/02/19 [History] Pantoprazole [ProTONIX] 40 mg PO BIDAC #30 tab.cr 05/06/19 [Rx] Sucralfate [Carafate] 0.5 gm PO QIDACANDBED #600 ml 05/06/19 [Rx] Warfarin Sodium [Coumadin] 5 mg PO DAILY 05/27/19 [History] Past Medical History HEENT History: Reports: Cataract, Hard of Hearing, Impaired Vision Cardiovascular History: Reports: CAD, High Cholesterol, Hypertension, [place], Pacemaker Respiratory History: Reports: SOB Gastrointestinal History: Reports: GI Bleed Musculoskeletal History: Reports: Osteoarthritis Psychiatric History: Reports: Dementia, Depression Endocrine/Metabolic History: Reports: Diabetes, Type II, IDDM Other Oncologic History: skin CA - Infectious Disease History Infectious Disease History: Reports: Chicken Pox Other Infectious Disease History: pt not sure - Past Surgical History HEENT Surgical History: Reports: Cataract Surgery Cardiovascular Surgical History: Reports: Coronary Artery Stent GI Surgical History: Reports: Appendectomy, Colonoscopy, EGD, Hernia, Inguinal Male Surgical History: Reports: None Musculoskeletal Surgical History: Reports: Hip Replacement, Other (See Below) Other Musculoskeletal Surgeries/Procedures:: both hips replaced Dermatological Surgical History: Reports: None Social & Family History - Family History Cardiac: Reports: [place] Neurological: Reports: CVA Endocrine/Metabolic: Reports: Diabetes, type II - Tobacco Use Smoking Status *Q: Never Smoker Second Hand Smoke Exposure: No - Caffeine Use Caffeine Use: Reports: Coffee - Recreational Drug Use Recreational Drug Use: No ED ROS GENERAL - Review of Systems Review Of Systems: See Below Constitutional: Denies: Fever, Chills, Decreased Appetite HEENT: Reports: No Symptoms Respiratory: Reports: Shortness of Breath. Denies: Cough Cardiovascular: Denies: Chest Pain, Palpitations GI/Abdominal: Reports: Diarrhea. Denies: Abdominal Pain, Nausea, Vomiting Skin: Reports: Other (Gets "dusky" at times) Neurological: Reports: Other (Intermittent confusion). Denies: Headache ED EXAM, GENERAL - Physical Exam Exam: See Below Exam Limited By: No Limitations General Appearance: Alert, No Apparent Distress Head: Atraumatic Respiratory/Chest: No Respiratory Distress, Lungs Clear Cardiovascular: Regular Rate, Rhythm. No: Tachycardia GI/Abdominal: Soft, Non-Tender Extremities: No Pedal Edema Neurological: Alert, Oriented Psychiatric: Normal Affect, Normal Mood Skin Exam: Warm, Dry Course - Vital Signs Last Recorded V/S: Last Vital Signs Temp 97.0 F 11/17/19 19:35 Pulse 70 11/17/19 19:35 Resp 14 11/17/19 19:35 BP 121/60 11/17/19 19:35 Pulse Ox 95 11/17/19 19:35 - Re-Assessments/Exams Free Text/Narrative Re-Assessment/Exam: 11/17/19 22:21 Patient was observed for 1 hour and saturations remained 94 to 97%. Was unable to review the clinic notes from earlier today which apparently included a chest x-ray and labs. With the patient being stable at this time, normal vitals, normal exam and a work-up earlier today, I really do not know what to offer for additional work-up at this time. Discussed with Dr. Mcintosh of the hospitalist service and he agreed no hospitalization was needed. Because he is doing so well, he will go home and they will contact his primary provider tomorrow to discuss results of the lab and x-ray and any further recommendations.. Departure - Departure Time of Disposition: 21:01 Disposition: DC/Tfer to [facility]isted [facility] Clinical Impression: Hypoxia Diarrhea Qualifiers: Diarrhea type: unspecified type Qualified Code(s): R19.7 - Diarrhea, unspecified - Discharge Information Instructions: Hypoxemia Referrals: Jose Bolivar MD [Primary Care Provider] - Forms: ED Department Discharge Care Plan Goals: Rest tonight, activity as tolerated and recheck with Roldan Ladd tomorrow about any additional recommendations or even possibly start transition to penitentiary. Sepsis Event Note - Evaluation Sepsis Screening Result: No Definite Risk - Focused Exam Vital Signs: Vital Signs Temp Pulse Resp BP Pulse Ox 11/17/19 19:35 97.0 F 70 14 121/60 95 Date Exam was Performed: 11/17/19 Time Exam was Performed: 22:19
== END 2019-11-17 20:45 ==
LOC: JP.ED 19:31
DX: R09.02 Hypoxemia (principal); R19.7 Diarrhea, unspecified; I10 Essential (primary) hypertension; I25.10 Atherosclerotic heart disease of native coronary artery without angina pectoris; E78.00 Pure hypercholesterolemia, unspecified; M19.90 Unspecified osteoarthritis, unspecified site; F32.9 Major depressive disorder, single episode, unspecified; E11.9 Type 2 diabetes mellitus without complications; I25.2 Old myocardial infarction; Z95.5 Presence of coronary angioplasty implant and graft; Z88.0 Allergy status to penicillin; Z79.4 Long term (current) use of insulin; Z79.899 Other long term (current) drug therapy; Z79.82 Long term (current) use of aspirin; Z79.01 Long term (current) use of anticoagulants
CPT/HCPCS: 99283; 99284

== ENCOUNTER 2021-12-26 15:13 | Emergency (ER) | payer MEDICARE, BC ==
[2021-12-26 15:26] VITALS: BP 111/61; PULSE 70
== END 2021-12-26 17:18 ==
LOC: JP.ED 15:13
DX: S16.1XXA Strain of muscle, fascia and tendon at neck level, initial encounter (principal); S00.03XA Contusion of scalp, initial encounter; S40.012A Contusion of left shoulder, initial encounter; I25.10 Atherosclerotic heart disease of native coronary artery without angina pectoris; E78.00 Pure hypercholesterolemia, unspecified; I10 Essential (primary) hypertension; I25.2 Old myocardial infarction; E11.9 Type 2 diabetes mellitus without complications; Z95.0 Presence of cardiac pacemaker; Z88.0 Allergy status to penicillin; Z79.4 Long term (current) use of insulin; Z79.899 Other long term (current) drug therapy; Z79.01 Long term (current) use of anticoagulants; W22.09XA Striking against other stationary object, initial encounter
CPT/HCPCS: 70450; 72125; 99282; 99285-25

== ENCOUNTER 2021-12-28 18:32 | Inpatient (IN) | payer MEDICARE, BC ==
[2021-12-28] MEDS: Sodium Chloride 0.9% 1,000 ML IV SCH (20:09)
[2021-12-28 20:24] LABS: CORONAVIRUS COVID-19 NAA NEGATIVE (NEGATIVE)
[2021-12-28] MEDS ORDERED: Ondansetron 4 MG Tab.DIS PO PRN (21:37)
[2021-12-28] MEDS ORDERED: Docusate Sodium 100 MG Cap PO PRN (21:37)
[2021-12-28] MEDS ORDERED: Bisacodyl 5 MG Tab PO PRN (21:37)
[2021-12-28] MEDS ORDERED: LORazepam 2 MG/ML SDV IV PRN (21:37)
[2021-12-28] MEDS ORDERED: Albuterol 0.083% 2.5 MG/3 ML Neb Soln NEB PRN (21:37)
[2021-12-28] MEDS: Pantoprazole 40 MG Vial IV SCH (23:00)
[2021-12-29] MEDS ORDERED: Haloperidol 1 MG Tab PO ONE (00:10)
[2021-12-29] MEDS: Acetaminophen 325 MG Tab PO PRN ×2 (00:21→13:29)
[2021-12-29] MEDS: Melatonin 3 MG Tab PO PRN ×2 (00:21→21:26)
[2021-12-29] MEDS: Sodium Chloride 0.9% 1,000 ML IV SCH (06:46)
[2021-12-29] MEDS: Insulin Lispro 100 Unit/ML 3 ML KwikPen SUBCUT SCH ×4 (07:45→21:19)
[2021-12-29] MEDS: Potassium Chloride 10 MEQ Cap.ER PO SCH ×2 (08:40→17:01)
[2021-12-29] MEDS: Donepezil 10 MG Tab PO SCH (08:40)
[2021-12-29] MEDS: Levothyroxine 100 MCG Tab PO SCH (08:40)
[2021-12-29] MEDS: Doxazosin 4 MG Tab PO SCH (08:47)
[2021-12-29] MEDS: Memantine 10 MG Tab PO SCH (08:48)
[2021-12-29] MEDS: amLODIPine 5 MG Tab PO SCH ×2 (08:48→21:20)
[2021-12-29] MEDS: Citalopram 10 MG Tab PO SCH (08:48)
[2021-12-29] MEDS: Magnesium Oxide 400 MG Tab PO SCH (08:48)
[2021-12-29] MEDS: Lisinopril 5 MG Tab PO SCH (08:49)
[2021-12-29] MEDS: Pravastatin 20 MG Tab PO SCH (08:49)
[2021-12-29] MEDS ORDERED: Citalopram 20 MG Tab PO SCH (09:00)
[2021-12-29] MEDS ORDERED: Magnesium Oxide 400 MG Tab PO SCH (09:00)
[2021-12-29] MEDS ORDERED: Non-Formulary Medication 1 Each (Magnesium Chloride [Mag-64] 64 MG Tab.Er) PO SCH (09:00)
[2021-12-29] MEDS: Nystatin Crm 30 GM Tube TOP SCH ×3 (11:39→21:22)
[2021-12-29] MEDS ORDERED: Warfarin 5 MG Tab PO SCH (13:00)
[2021-12-29] MEDS ORDERED: Furosemide 40 MG Tab PO ONE (16:09)
[2021-12-29] MEDS: Divalproex Sodium Delayed-Release 250 MG Tab.CR PO SCH (17:09)
[2021-12-29] MEDS ORDERED: Vancomycin 1 GM SDV IV SCH (18:00)
[2021-12-29] MEDS: Haloperidol 1 MG Tab PO PRN ×2 (18:30→21:26)
[2021-12-29] MEDS: Pantoprazole 40 MG Vial IV SCH (21:22)
[2021-12-29] MEDS: Insulin Glargine,Human Rec. Analog 100 Units/ML 3 ML Pen SUBCUT SCH (21:26)
[2021-12-30] MEDS: Acetaminophen 325 MG Tab PO PRN ×2 (00:47→23:14)
[2021-12-30] MEDS: Haloperidol 1 MG Tab PO PRN ×2 (02:58→23:14)
[2021-12-30] MEDS: Insulin Lispro 100 Unit/ML 3 ML KwikPen SUBCUT SCH ×4 (08:00→21:22)
[2021-12-30] MEDS: Levothyroxine 100 MCG Tab PO SCH (08:01)
[2021-12-30] MEDS: Doxazosin 4 MG Tab PO SCH (08:03)
[2021-12-30] MEDS: Potassium Chloride 10 MEQ Cap.ER PO SCH ×2 (08:03→19:07)
[2021-12-30] MEDS: Citalopram 10 MG Tab PO SCH (08:07)
[2021-12-30] MEDS: Memantine 10 MG Tab PO SCH (08:08)
[2021-12-30] MEDS: Donepezil 10 MG Tab PO SCH (08:08)
[2021-12-30] MEDS: Magnesium Oxide 400 MG Tab PO SCH (08:08)
[2021-12-30] MEDS: amLODIPine 5 MG Tab PO SCH ×2 (08:09→20:07)
[2021-12-30] MEDS: Divalproex Sodium Delayed-Release 125 MG Cap.Sprink PO SCH ×2 (08:20→19:07)
[2021-12-30] MEDS: Divalproex Sodium Delayed-Release 250 MG Tab.CR PO SCH (08:21)
[2021-12-30] MEDS: Pravastatin 20 MG Tab PO SCH (08:23)
[2021-12-30] MEDS: Lisinopril 5 MG Tab PO SCH (08:23)
[2021-12-30] MEDS: Nystatin Crm 30 GM Tube TOP SCH ×3 (08:26→20:06)
[2021-12-30] MEDS ORDERED: Warfarin 2.5 MG Tab PO SCH (13:00)
[2021-12-30] MEDS: Insulin Glargine,Human Rec. Analog 100 Units/ML 3 ML Pen SUBCUT SCH (20:05)
[2021-12-30] MEDS: Melatonin 3 MG Tab PO SCH (20:07)
[2021-12-31] MEDS: Pantoprazole 40 MG Tab.CR PO SCH (07:43)
[2021-12-31] MEDS: Levothyroxine 100 MCG Tab PO SCH (07:44)
[2021-12-31] MEDS ORDERED: Potassium Chloride 20 MEQ Tab.ER PO ONE (09:00)
[2021-12-31] MEDS: Insulin Lispro 100 Unit/ML 3 ML KwikPen SUBCUT SCH ×4 (09:04→21:27)
[2021-12-31] MEDS: Potassium Chloride 10 MEQ Cap.ER PO SCH ×2 (09:05→17:08)
[2021-12-31] MEDS: Citalopram 10 MG Tab PO SCH (09:06)
[2021-12-31] MEDS: Lisinopril 5 MG Tab PO SCH (09:06)
[2021-12-31] MEDS: Pravastatin 20 MG Tab PO SCH (09:06)
[2021-12-31] MEDS: Doxazosin 4 MG Tab PO SCH (09:07)
[2021-12-31] MEDS: Divalproex Sodium Delayed-Release 125 MG Cap.Sprink PO SCH ×2 (09:07→17:08)
[2021-12-31] MEDS: Donepezil 10 MG Tab PO SCH (09:08)
[2021-12-31] MEDS: Magnesium Oxide 400 MG Tab PO SCH (09:08)
[2021-12-31] MEDS: amLODIPine 5 MG Tab PO SCH ×2 (09:09→20:53)
[2021-12-31] MEDS: Memantine 10 MG Tab PO SCH (09:09)
[2021-12-31] MEDS ORDERED: Sodium Chloride 0.9% 10 ML Syringe FLUSH PRN (10:55)
[2021-12-31] MEDS ORDERED: Iopamidol 612 MG/ML 100 ML Bottle IV PRN (10:55)
[2021-12-31] MEDS ORDERED: Sodium Chloride 0.9% 75 ML IV SCH (11:00)
[2021-12-31] MEDS: Nystatin Crm 30 GM Tube TOP SCH ×3 (11:10→20:52)
[2021-12-31] MEDS: Levofloxacin/Dextrose 5%-Water 750 MG in Premix Bag 1 BAG IV SCH (11:43)
[2021-12-31] MEDS ORDERED: Phytonadione 10 MG in Sodium Chloride 0.9% 50 ML IV ONE ×2 (12:45→14:00)
[2021-12-31] MEDS ORDERED: NS + KCl 20mEq/L 1,000 ML IV SCH (13:45)
[2021-12-31] MEDS: Haloperidol 1 MG Tab PO PRN (20:52)
[2021-12-31] MEDS: Melatonin 3 MG Tab PO SCH (20:52)
[2021-12-31] MEDS: Insulin Glargine,Human Rec. Analog 100 Units/ML 3 ML Pen SUBCUT SCH (21:27)
[2022-01-01] MEDS: Insulin Lispro 100 Unit/ML 3 ML KwikPen SUBCUT SCH ×4 (07:38→21:37)
[2022-01-01] MEDS: Pantoprazole 40 MG Tab.CR PO SCH (07:38)
[2022-01-01] MEDS: Levothyroxine 100 MCG Tab PO SCH (07:39)
[2022-01-01] MEDS: Potassium Chloride 10 MEQ Cap.ER PO SCH ×2 (07:40→17:41)
[2022-01-01] MEDS: Divalproex Sodium Delayed-Release 125 MG Cap.Sprink PO SCH ×2 (07:40→17:41)
[2022-01-01] MEDS: Doxazosin 4 MG Tab PO SCH (08:41)
[2022-01-01] MEDS: Donepezil 10 MG Tab PO SCH (08:41)
[2022-01-01] MEDS: Memantine 10 MG Tab PO SCH (08:42)
[2022-01-01] MEDS: Magnesium Oxide 400 MG Tab PO SCH (08:42)
[2022-01-01] MEDS: Citalopram 10 MG Tab PO SCH (08:42)
[2022-01-01] MEDS: Lisinopril 5 MG Tab PO SCH (08:43)
[2022-01-01] MEDS: Pravastatin 20 MG Tab PO SCH (08:43)
[2022-01-01] MEDS: amLODIPine 5 MG Tab PO SCH ×2 (08:44→21:57)
[2022-01-01] MEDS: Nystatin Crm 30 GM Tube TOP SCH ×3 (08:44→21:58)
[2022-01-01] MEDS: Levofloxacin/Dextrose 5%-Water 750 MG in Premix Bag 1 BAG IV SCH (13:17)
[2022-01-01] MEDS: Haloperidol 1 MG Tab PO PRN (17:41)
[2022-01-01] MEDS: Insulin Glargine,Human Rec. Analog 100 Units/ML 3 ML Pen SUBCUT SCH (21:56)
[2022-01-01] MEDS: Melatonin 3 MG Tab PO SCH (21:58)
[2022-01-01] MEDS ORDERED: Dextrose 5%-Lactated Ringers 1,000 ML IV SCH (22:00)
[2022-01-02] MEDS: Acetaminophen 325 MG Tab PO PRN (01:43)
[2022-01-02] MEDS ORDERED: Bupivacaine 0.5% 50 ML MDV ONE (06:31)
[2022-01-02] MEDS ORDERED: Lidocaine 1% with EPINEPHrine 1:100,000 50 ML MDV ONE (06:31)
[2022-01-02] MEDS ORDERED: Glycopyrrolate 0.2 MG/ML 5 ML MDV ONE (07:02)
[2022-01-02] MEDS ORDERED: Dexamethasone 4 MG/ML SDV ONE (07:02)
[2022-01-02] MEDS ORDERED: Succinylcholine 200 MG/10 ML MDV ONE (07:02)
[2022-01-02] MEDS ORDERED: fentaNYL 250 MCG/5 ML SDV ONE (07:02)
[2022-01-02] MEDS ORDERED: Ondansetron 4 MG/2 ML SDV ONE (07:02)
[2022-01-02] MEDS ORDERED: Neostigmine Methylsulfate 1 MG/ML 5 ML Syringe ONE (07:02)
[2022-01-02] MEDS ORDERED: Propofol 200 MG/20 ML SDV ONE (07:02)
[2022-01-02] MEDS ORDERED: Rocuronium 50 MG/5 ML Vial ONE (07:02)
[2022-01-02] MEDS ORDERED: Linezolid 600 MG in Premix Bag 1 BAG IV ONE ×2 (07:30→09:00)
[2022-01-02] MEDS ORDERED: Indocyanine Green 25 MG SDV INJECT ONE (07:30)
[2022-01-02] MEDS ORDERED: Ropivacaine 50 ML, dexAMETHasone 8 MG, EPINEPHrine 0.4 MG, Sodium Chloride 0.9% 27.6 ML NERVRT SCH ×4 (08:45)
[2022-01-02] MEDS ORDERED: Tranexamic Acid 1,000 MG in Sodium Chloride 0.9% 50 ML IV ONE ×2 (09:00→13:00)
[2022-01-02] MEDS ORDERED: fentaNYL 100 MCG/2 ML SDV IVPUSH ONE (09:29)
[2022-01-02] MEDS: Insulin Lispro 100 Unit/ML 3 ML KwikPen SUBCUT SCH ×4 (09:49→21:53)
[2022-01-02] MEDS: Pantoprazole 40 MG Tab.CR PO SCH (09:50)
[2022-01-02] MEDS: Magnesium Oxide 400 MG Tab PO SCH (09:51)
[2022-01-02] MEDS: Potassium Chloride 10 MEQ Cap.ER PO SCH ×2 (09:51→16:49)
[2022-01-02] MEDS: Doxazosin 4 MG Tab PO SCH (11:14)
[2022-01-02] MEDS: Levothyroxine 100 MCG Tab PO SCH (11:14)
[2022-01-02] MEDS: Divalproex Sodium Delayed-Release 125 MG Cap.Sprink PO SCH ×2 (11:14→16:10)
[2022-01-02] MEDS: Donepezil 10 MG Tab PO SCH (11:14)
[2022-01-02] MEDS: amLODIPine 5 MG Tab PO SCH ×2 (11:15→21:55)
[2022-01-02] MEDS: Memantine 10 MG Tab PO SCH (11:15)
[2022-01-02] MEDS: Citalopram 10 MG Tab PO SCH (11:15)
[2022-01-02] MEDS: Nystatin Crm 30 GM Tube TOP SCH ×3 (11:15→21:56)
[2022-01-02] MEDS: Pravastatin 20 MG Tab PO SCH (11:16)
[2022-01-02] MEDS: Lisinopril 5 MG Tab PO SCH (11:16)
[2022-01-02] MEDS: oxyCODONE 5 MG Tab PO PRN ×2 (11:43→16:09)
[2022-01-02] MEDS ORDERED: Levofloxacin/Dextrose 5%-Water 500 MG in Premix Bag 1 BAG IV SCH (13:00)
[2022-01-02] MEDS: Insulin Glargine,Human Rec. Analog 100 Units/ML 3 ML Pen SUBCUT SCH (21:54)
[2022-01-02] MEDS: Melatonin 3 MG Tab PO SCH (21:55)
[2022-01-02] MEDS ORDERED: Furosemide 20 MG/2 ML VIAL IVPUSH ONE (23:53)
[2022-01-02] MEDS ORDERED: Lidocaine 2% Jelly 10 ML Urojet MUCMEM ONE (23:57)
[2022-01-03] MEDS: oxyCODONE 5 MG Tab PO PRN ×5 (01:44→21:50)
[2022-01-03] MEDS: Acetaminophen 325 MG Tab PO PRN ×2 (01:45→11:11)
[2022-01-03] MEDS ORDERED: Lactated Ringers 1,000 ML IV SCH ×2 (07:30→12:45)
[2022-01-03] MEDS: Pantoprazole 40 MG Tab.CR PO SCH (08:05)
[2022-01-03] MEDS: Levothyroxine 100 MCG Tab PO SCH (08:05)
[2022-01-03] MEDS: Pravastatin 20 MG Tab PO SCH (08:29)
[2022-01-03] MEDS: Divalproex Sodium Delayed-Release 125 MG Cap.Sprink PO SCH ×2 (08:29→17:42)
[2022-01-03] MEDS: Doxazosin 4 MG Tab PO SCH (08:29)
[2022-01-03] MEDS: Magnesium Oxide 400 MG Tab PO SCH (08:29)
[2022-01-03] MEDS: Docusate Sodium 100 MG Cap PO SCH ×2 (08:30→20:23)
[2022-01-03] MEDS: Potassium Chloride 10 MEQ Cap.ER PO SCH ×2 (08:30→17:42)
[2022-01-03] MEDS: amLODIPine 5 MG Tab PO SCH ×2 (08:30→20:25)
[2022-01-03] MEDS: Memantine 10 MG Tab PO SCH (08:30)
[2022-01-03] MEDS: Lisinopril 5 MG Tab PO SCH (08:30)
[2022-01-03] MEDS: Citalopram 10 MG Tab PO SCH (08:30)
[2022-01-03] MEDS: Donepezil 10 MG Tab PO SCH (08:32)
[2022-01-03] MEDS: Bisacodyl 5 MG Tab PO SCH ×2 (08:33→20:22)
[2022-01-03] MEDS: Insulin Lispro 100 Unit/ML 3 ML KwikPen SUBCUT SCH ×4 (08:37→21:41)
[2022-01-03] MEDS ORDERED: Tamsulosin 0.4 MG Cap.ER PO ONE (09:00)
[2022-01-03] MEDS ORDERED: Furosemide 20 MG/2 ML VIAL IVPUSH ONE (09:00)
[2022-01-03] MEDS: Nystatin Crm 30 GM Tube TOP SCH ×3 (11:14→20:27)
[2022-01-03] MEDS ORDERED: Warfarin 5 MG Tab PO ONE (13:00)
[2022-01-03] MEDS: Melatonin 3 MG Tab PO SCH (20:24)
[2022-01-03] MEDS: Tamsulosin 0.4 MG Cap.ER PO SCH (20:24)
[2022-01-03] MEDS: Insulin Glargine,Human Rec. Analog 100 Units/ML 3 ML Pen SUBCUT SCH (21:40)
[2022-01-04] MEDS: oxyCODONE 5 MG Tab PO PRN ×2 (04:30→14:12)
[2022-01-04] MEDS: Insulin Lispro 100 Unit/ML 3 ML KwikPen SUBCUT SCH ×4 (07:50→21:28)
[2022-01-04] MEDS: Pantoprazole 40 MG Tab.CR PO SCH (08:06)
[2022-01-04] MEDS: Doxazosin 4 MG Tab PO SCH (08:06)
[2022-01-04] MEDS: Divalproex Sodium Delayed-Release 125 MG Cap.Sprink PO SCH ×2 (08:06→17:15)
[2022-01-04] MEDS: Potassium Chloride 10 MEQ Cap.ER PO SCH ×2 (08:06→17:15)
[2022-01-04] MEDS: amLODIPine 5 MG Tab PO SCH ×2 (08:06→20:00)
[2022-01-04] MEDS: Citalopram 10 MG Tab PO SCH (08:06)
[2022-01-04] MEDS: Levothyroxine 100 MCG Tab PO SCH (08:06)
[2022-01-04] MEDS: Pravastatin 20 MG Tab PO SCH (08:07)
[2022-01-04] MEDS: Lisinopril 5 MG Tab PO SCH (08:07)
[2022-01-04] MEDS: Magnesium Oxide 400 MG Tab PO SCH (08:07)
[2022-01-04] MEDS: Docusate Sodium 100 MG Cap PO SCH ×2 (08:07→20:01)
[2022-01-04] MEDS: Acetaminophen 325 MG Tab PO PRN (08:07)
[2022-01-04] MEDS: Memantine 10 MG Tab PO SCH (08:07)
[2022-01-04] MEDS: Bisacodyl 5 MG Tab PO SCH ×2 (08:07→20:01)
[2022-01-04] MEDS: Donepezil 10 MG Tab PO SCH (08:08)
[2022-01-04] MEDS: Nystatin Crm 30 GM Tube TOP SCH ×3 (08:09→22:41)
[2022-01-04] MEDS ORDERED: Sodium Chloride 0.9% 10 ML Syringe IV PRN (08:58)
[2022-01-04] MEDS ORDERED: Furosemide 20 MG/2 ML VIAL IVPUSH SCH (09:00)
[2022-01-04] MEDS ORDERED: Warfarin 2.5 MG Tab PO ONE (13:00)
[2022-01-04] MEDS ORDERED: Furosemide 40 MG Tab PO ONE (15:00)
[2022-01-04] MEDS: Haloperidol 1 MG Tab PO PRN (19:36)
[2022-01-04] MEDS: traMADol 50 MG Tab PO PRN (19:51)
[2022-01-04] MEDS: Melatonin 3 MG Tab PO SCH (20:01)
[2022-01-04] MEDS: Tamsulosin 0.4 MG Cap.ER PO SCH (20:01)
[2022-01-04] MEDS ORDERED: Cefdinir 300 MG Cap PO SCH (21:00)
[2022-01-04] MEDS: Insulin Glargine,Human Rec. Analog 100 Units/ML 3 ML Pen SUBCUT SCH (21:27)
[2022-01-05] MEDS: Acetaminophen 325 MG Tab PO PRN ×2 (02:07→17:24)
[2022-01-05] MEDS ORDERED: Bisacodyl 10 MG Supp RECTAL PRN ×2 (07:58→15:00)
[2022-01-05] MEDS: Insulin Lispro 100 Unit/ML 3 ML KwikPen SUBCUT SCH ×4 (08:56→20:56)
[2022-01-05] MEDS ORDERED: Magnesium Hydroxide 400 MG/5 ML Susp 30 ML Cup PO ONE ×2 (09:00→18:11)
[2022-01-05] MEDS: Levothyroxine 100 MCG Tab PO SCH (09:57)
[2022-01-05] MEDS: Divalproex Sodium Delayed-Release 125 MG Cap.Sprink PO SCH ×2 (09:57→17:25)
[2022-01-05] MEDS: Pantoprazole 40 MG Tab.CR PO SCH (09:57)
[2022-01-05] MEDS: Furosemide 40 MG Tab PO SCH ×2 (09:58→14:50)
[2022-01-05] MEDS: Potassium Chloride 10 MEQ Cap.ER PO SCH ×2 (09:58→17:25)
[2022-01-05] MEDS: amLODIPine 5 MG Tab PO SCH ×2 (09:59→21:08)
[2022-01-05] MEDS: Bisacodyl 5 MG Tab PO SCH ×2 (10:01→20:57)
[2022-01-05] MEDS: Potassium Chloride 20 MEQ Tab.ER PO SCH ×2 (10:01→20:57)
[2022-01-05] MEDS: Magnesium Oxide 400 MG Tab PO SCH (10:02)
[2022-01-05] MEDS: Doxazosin 4 MG Tab PO SCH (10:02)
[2022-01-05] MEDS: Pravastatin 20 MG Tab PO SCH (10:02)
[2022-01-05] MEDS: Docusate Sodium 100 MG Cap PO SCH ×2 (10:03→20:57)
[2022-01-05] MEDS: Lisinopril 5 MG Tab PO SCH (10:03)
[2022-01-05] MEDS: Citalopram 10 MG Tab PO SCH (10:03)
[2022-01-05] MEDS: Memantine 10 MG Tab PO SCH (10:03)
[2022-01-05] MEDS: Donepezil 10 MG Tab PO SCH (10:06)
[2022-01-05] MEDS: Nystatin Crm 30 GM Tube TOP SCH ×3 (10:29→21:00)
[2022-01-05] MEDS: traMADol 50 MG Tab PO PRN (10:29)
[2022-01-05] MEDS ORDERED: Warfarin 2.5 MG Tab PO ONE (13:00)
[2022-01-05] MEDS ORDERED: Magnesium Hydroxide 400 MG/5 ML Susp 30 ML Cup PO PRN (15:00)
[2022-01-05] MEDS: Tamsulosin 0.4 MG Cap.ER PO SCH (20:57)
[2022-01-05] MEDS: Melatonin 3 MG Tab PO SCH (20:58)
[2022-01-05] MEDS: Insulin Glargine,Human Rec. Analog 100 Units/ML 3 ML Pen SUBCUT SCH (20:58)
[2022-01-06] MEDS: Acetaminophen 325 MG Tab PO PRN (05:45)
[2022-01-06] MEDS: Insulin Lispro 100 Unit/ML 3 ML KwikPen SUBCUT SCH ×2 (07:42→11:32)
[2022-01-06 07:45] VITALS: BP 103/68; PULSE 70
[2022-01-06] MEDS: Pantoprazole 40 MG Tab.CR PO SCH (08:13)
[2022-01-06] MEDS: Potassium Chloride 10 MEQ Cap.ER PO SCH (08:16)
[2022-01-06] MEDS: Levothyroxine 100 MCG Tab PO SCH (08:16)
[2022-01-06] MEDS: Divalproex Sodium Delayed-Release 125 MG Cap.Sprink PO SCH (08:16)
[2022-01-06] MEDS: Donepezil 10 MG Tab PO SCH (08:16)
[2022-01-06] MEDS: Furosemide 40 MG Tab PO SCH (08:17)
[2022-01-06] MEDS: Pravastatin 20 MG Tab PO SCH (08:17)
[2022-01-06] MEDS: Citalopram 10 MG Tab PO SCH (08:17)
[2022-01-06] MEDS: Bisacodyl 5 MG Tab PO SCH (08:17)
[2022-01-06] MEDS: Doxazosin 4 MG Tab PO SCH (08:17)
[2022-01-06] MEDS: Docusate Sodium 100 MG Cap PO SCH (08:17)
[2022-01-06] MEDS: Nystatin Crm 30 GM Tube TOP SCH (08:18)
[2022-01-06] MEDS: Magnesium Oxide 400 MG Tab PO SCH (08:18)
[2022-01-06] MEDS: Lisinopril 5 MG Tab PO SCH (08:18)
[2022-01-06] MEDS: amLODIPine 5 MG Tab PO SCH (08:18)
[2022-01-06] MEDS: Memantine 10 MG Tab PO SCH (08:18)
[2022-01-06] MEDS ORDERED: Warfarin 2.5 MG Tab PO ONE (12:00)
== END 2022-01-06 13:11 | DRG 417 ==
LOC: JP.ED 18:32 → JP.MS 20:56 → UNDOADMOB 20:56 → INTOOBSV 20:56 → JP.MS 21:22 → OBSVTOIN 01-03 11:13 → INTOOBSV 01-03 11:13 → UNDODISIN 01-06 13:11
PROVIDERS: ADMIT Hospitalist; ATTEND Hospitalist
PROC: 0FT44ZZ Resection of Gallbladder, Percutaneous Endoscopic Approach (ICD-10-PCS; principal; 2022-01-02)
PROC: 0W9G4ZZ Drainage of Peritoneal Cavity, Percutaneous Endoscopic Approach (ICD-10-PCS; 2022-01-02)
PROC: 0W9G4ZZ Drainage of Peritoneal Cavity, Percutaneous Endoscopic Approach (ICD-10-PCS; 2022-01-02)
PROC: 4A1635H Monitoring of Lymphatic Flow using Indocyanine Green Dye, Percutaneous Approach (ICD-10-PCS; 2022-01-02)
DX: K80.00 Calculus of gallbladder with acute cholecystitis without obstruction (principal); K65.1 Peritoneal abscess; I48.20 Chronic atrial fibrillation, unspecified; I48.91 Unspecified atrial fibrillation; Z79.01 Long term (current) use of anticoagulants; R53.1 Weakness; Z66 Do not resuscitate; H54.7 Unspecified visual loss; H91.90 Unspecified hearing loss, unspecified ear; I25.10 Atherosclerotic heart disease of native coronary artery without angina pectoris; E78.00 Pure hypercholesterolemia, unspecified; K59.09 Other constipation; M19.90 Unspecified osteoarthritis, unspecified site; F32.A Depression, unspecified; F03.90 Unspecified dementia, unspecified severity, without behavioral disturbance, psychotic disturbance, mood disturbance, and anxiety; E11.9 Type 2 diabetes mellitus without complications; E03.9 Hypothyroidism, unspecified; Z79.818 Long term (current) use of other agents affecting estrogen receptors and estrogen levels; Z96.643 Presence of artificial hip joint, bilateral; I49.5 Sick sinus syndrome; Z20.822 Contact with and (suspected) exposure to COVID-19; T88.59XA Other complications of anesthesia, initial encounter; I71.2 Thoracic aortic aneurysm, without rupture; R33.8 Other retention of urine; Z79.4 Long term (current) use of insulin; Z79.82 Long term (current) use of aspirin; R29.6 Repeated falls; Z79.890 Hormone replacement therapy; Z79.899 Other long term (current) drug therapy; Z98.49 Cataract extraction status, unspecified eye; I25.2 Old myocardial infarction; Z95.0 Presence of cardiac pacemaker; Z85.828 Personal history of other malignant neoplasm of skin; Z90.49 Acquired absence of other specified parts of digestive tract; Z95.5 Presence of coronary angioplasty implant and graft; K59.00 Constipation, unspecified; L02.91 Cutaneous abscess, unspecified; L02.818 Cutaneous abscess of other sites
CPT/HCPCS: 0241U; 36415; 51702; 71045; 74177; 80048; 80053; 81001; 82150; 82947; 83690; 83735; 83880; 84100; 84443; 85025; 85027; 85610; 87040; 87070; 87075; 87077; 87186; 87205; 88304; 93306; 97110; 97162; 97165; 97530; 97535; 99285; A9270-GY; C9113; J0171; J0330; J0713; J1100; J1815; J1815-GY; J1940; J1956; J2020; J2405; J2704; J2710; J2795; J3010; J3370; J3430; J3480; J3490; J7030; J7050; J7120; J7121; Q0162

== ENCOUNTER 2022-10-08 16:30 | Emergency (ER) | payer MEDICARE, BC ==
[2022-10-08 17:59] VITALS: BP 100/58; PULSE 70
== END 2022-10-08 19:05 | disposition home or self-care (01) ==
LOC: JP.ED 16:30
DX: I48.20 Chronic atrial fibrillation, unspecified (principal); F03.90 Unspecified dementia, unspecified severity, without behavioral disturbance, psychotic disturbance, mood disturbance, and anxiety; M54.50 Low back pain, unspecified; E87.6 Hypokalemia; N17.9 Acute kidney failure, unspecified; I95.1 Orthostatic hypotension; I25.10 Atherosclerotic heart disease of native coronary artery without angina pectoris; E78.00 Pure hypercholesterolemia, unspecified; I10 Essential (primary) hypertension; Z88.0 Allergy status to penicillin; Z79.899 Other long term (current) drug therapy; Z79.4 Long term (current) use of insulin; Z79.01 Long term (current) use of anticoagulants; Z90.49 Acquired absence of other specified parts of digestive tract; W01.10XA Fall on same level from slipping, tripping and stumbling with subsequent striking against unspecified object, initial encounter
CPT/HCPCS: 36415; 70450; 72100; 80048; 85025; 85610; 93005; 99284

== ENCOUNTER 2022-10-09 08:52 | Emergency (ER) | payer MEDICARE, BC ==
[2022-10-09 12:26] VITALS: BP 115/72; PULSE 73
[2022-10-09] MEDS ORDERED: Acetaminophen 500 MG Tab PO ONE (13:13)
== END 2022-10-09 15:32 ==
LOC: JP.ED 08:52
DX: M54.50 Low back pain, unspecified (principal); F03.90 Unspecified dementia, unspecified severity, without behavioral disturbance, psychotic disturbance, mood disturbance, and anxiety; R53.1 Weakness; I25.10 Atherosclerotic heart disease of native coronary artery without angina pectoris; E78.00 Pure hypercholesterolemia, unspecified; I10 Essential (primary) hypertension; E11.9 Type 2 diabetes mellitus without complications; Z88.0 Allergy status to penicillin; Z79.4 Long term (current) use of insulin; Z79.899 Other long term (current) drug therapy; Z79.01 Long term (current) use of anticoagulants; Z90.49 Acquired absence of other specified parts of digestive tract
CPT/HCPCS: 72170; 82947; 99285; A9270

== ENCOUNTER 2022-10-15 11:25 | Emergency (ER) | payer MEDICARE, BC ==
[2022-10-15 11:27] VITALS: BP 125/82
[2022-10-15 11:33] VITALS: PULSE 74
[2022-10-15] MEDS ORDERED: fentaNYL 50 MCG/ML SDV IM ONE (11:58)
== END 2022-10-15 14:19 ==
LOC: JP.ED 11:25
DX: M54.50 Low back pain, unspecified (principal); I10 Essential (primary) hypertension; E78.00 Pure hypercholesterolemia, unspecified; E11.9 Type 2 diabetes mellitus without complications; Z79.4 Long term (current) use of insulin; Z79.899 Other long term (current) drug therapy; Z88.0 Allergy status to penicillin
CPT/HCPCS: 72131; 72192; 96372; 99284; J3010